=== PATIENT | female | born 1970 | race Two or more races ===

== ENCOUNTER 2020-11-09 18:11 | Emergency (ER) | payer OTHER, SELFPAY ==
--- NOTE | ~2020-11-09 | XR_ITS ---
EXAMINATION: PORTABLE CHEST 1 VIEW CLINICAL INFORMATION: cp . COMPARISON: 05/29/2019. TECHNIQUE: Portable frontal view of the chest was obtained. FINDINGS: The lungs are well expanded. No focal infiltrate, effusion, edema, or pneumothorax. Cardiac and mediastinal silhouettes are within normal limits for technique. No acute bony abnormality seen. XR/XR chest 1V IMPRESSION: No evidence of acute disease.
[2020-11-09 18:20] VITALS: BP 141/71; PULSE 72; RESP 16; TEMP 36.7; O2SAT 98; BMI 52.0
--- NOTE | 2020-11-09 19:16 | ECG_ITS ---
Test Reason : CHEST PAIN Blood Pressure : / mmHG Vent. Rate : 073 BPM Atrial Rate : 073 BPM P-R Int : 166 ms QRS Dur : 082 ms QT Int : 394 ms P-R-T Axes : 000 051 044 degrees QTc Int : 434 ms Normal sinus rhythm Nonspecific ST abnormality Abnormal ECG When compared with ECG of 10-JUN-2019 10:38, No significant change was found Referred By: Adneike Castaneda Electronically Signed By:Victor Manuel Jackson
--- NOTE | 2020-11-09 19:45 | ED_ITS ---
HPI - Anxiety General Chief Complaint: Anxiety Stated Complaint: CHEST PAIN Time Seen by Provider: 11/09/20 19:16 Source: patient and EMS Mode of arrival: EMS History of Present Illness HPI narrative: 50-year-old female with no significant past medical history presenting to the ED complaining of constant substernal chest pressure/stabbing pain since yesterday. Reports increased stress/anxiety due to mother's recent . Reports episode of lightheadedness while walking up the stairs today, resolved at present. Also reports acute on chronic LE edema. Denies fever, chills, cough, shortness of breath, numbness, tingling, calf pain, recent travel MD complaint: anxiety Related Data Allergies Allergy/AdvReac Type Severity Reaction Status Date / Time latex [LATEX] Allergy Unknown ECZEMA Verified 11/09/20 20:08 ibuprofen [From MOTRIN] AdvReac Unknown FAINTED Verified 11/09/20 20:08 SEASONAL ALLERGIES Allergy Unknown SNEEZING Uncoded 11/09/20 20:08 Review of Systems Review of Systems: Constitutional: No Fever, No Chills, No Fatigue, No Malaise Cardiovascular: + Chest Pain, No SOB, + Dyspnea on Exertion, No Orthopnea, + Edema, No Palpitations Respiratory: No Cough, No Sputum, No Wheezing, No Dyspnea Gastrointestinal: No Nausea, No Vomiting, No Diarrhea, No Constipation, No Abdominal pain Genitourinary: No Dysuria, No Urinary Frequency, No Hematuria Musculoskeletal: No joint pain, No Myalgias, No Joint Swelling Skin: No Skin Lesions, No rash Neuro: No Weakness, No Numbness, No Paresthesias, No Loss of Consciousness, + lightheadedness (resolved) Yes all other systems are reviewed and are negative [facility] Past Medical History Attestation statement: The following information was validated with the patient. Medical History (Updated 11/09/20 @ 21:53 by AZALEA Arrieta) No known health problems Social History Social History Alcohol intake: never Smoking Status: Never smoker Advance Directives: No Advance Directives Information Provided: Yes Patient : No Physical Exam Vital Signs: Vital Signs: Last Vital Signs Temp 97.9 F 11/09/20 20:06 Pulse 69 11/09/20 20:06 Resp 16 11/09/20 20:06 BP 138/73 11/09/20 20:06 Pulse Ox 98 11/09/20 20:06 Body Mass Index 52.0 Const: General: cooperative, healthy appearing and anxious Orientati on/consciousness: patient oriented x3 Limitations: no limitations HENMT: Head: Yes normal to inspection Ears: hearing grossly normal bilaterally General nose exam: Normal external nose present Face and sinus: Yes normal facial exam Eyes: General: appearance normal, both eyes and all related structures EOM: EOMs intact bilaterally Neck: Neck: Yes normal visual inspection and Yes no meningeal signs Chest: Chest palpation & inspection: normal inspection of the chest, no crepitus and tenderness (Substernal) Resp: Effort & Inspection: normal respiratory effort Auscultation: clear to auscultation bilaterally, no rales, no rhonchi and no wheezes Cardio: Rate: regular rate Heart sounds: S1 normal heart sound present and S2 normal heart sound present GI: Inspection: Yes normal to inspection Palpation (GI): Soft to palpation, nontender, no guarding and not rigid Skin: Rashes: no rashes Wounds: no wounds Neuro: General: patient oriented x3 and no meningeal signs Gait exam (Neuro): Normal gait present Extrem: Other: + bilateral lower extremity edema General: Yes normal to inspection and Yes no calf tenderness Course Course Course Narrative: -no leukocytosis, H&H at patient's baseline, labs otherwise unremarkable, troponin negative XR chest 1V IMPRESSION: No evidence of acute disease. >> 2150--on re-evaluation patient reports symptomatic improvement. Results d iscussed with patient including worrisome signs and symptoms and strict return precautions, she verbalized understanding and feels safe discharge home MDM - Anxiety MDM Narrative Medical decision making narrative: 50-year-old female with no significant past medical history presenting to the ED complaining of constant substernal chest pressure/stabbing pain since yesterday. Reports increased stress/anxiety due to mother's recent . On exam VSS, appears anxious, tremulous, lungs CTA, chest pain reproducible on exam, bilateral lower extremity edema. Concern for ACS vs anxiety vs CHF. Lower concern for pneumonia/PE Plan: EKG, labs, CXR, Ativan, reassess Medical Records Attestation: I reviewed the patient's medical records. Lab Data Attestation: I reviewed the patient's lab results. Result diagrams: 11/09/20 20:00 11/09/20 20:00 Labs: Lab Results 11/09/20 11/09/20 11/09/20 Range/Units 20:00 20:00 20:00 WBC 10.2 (4.8-10.8) X10*3/uL RBC 3.96 L (4.20-5.50) X10*6/uL Hgb 9.8 L (12.0-16.0) g/dl Hct 31.6 L (37-47) % MCV 79.8 L (80-98) fL MCH 24.7 L (27.0-33.0) pg MCHC 31.0 (31.0-35.0) g/dl RDW 17.0 H (11.0-16.0) % Plt Count 337 (160-400) X10*3/uL MPV 10.1 (9.4-12.3) fL Immature Gran % (Auto) 0.6 H (0.0-0.4) % Neut % (Auto) 64.5 (45-73) % Lymph % (Auto) 25.1 (20-40) % [place] % (Auto) 7.5 (2-11) % Eos % (Auto) 1.7 (0-4) % Baso % (Auto) 0.6 (0-2) % Lymph # (Auto) 2.6 (1.2-4.9) X10*3/uL [place] # (Auto) 0.8 (0.1-1.2) X10*3/uL Eos # (Auto) 0.2 (0.0-0.4) X10*3/uL Baso # (Auto) 0.1 (0.0-0.2) X10*3/uL Abs Immat Gran (auto) 0.06 H (0.00-0.03) X10*3/uL Absolute Neuts (auto) 6.6 (2.0-8.3) X10*3/uL Absolute Nucleated RBC 0.000 (0.0-0.012) X10*3/uL Nucleated RBC % (auto) 0.0 (0.0-0.2) /100WBC Hold Blue Top SEE NOTE Sodium 137 (135-145) mmol/L Potassium 4.1 (3.3-5.1) mmol/L Chloride 99 (96-108) mmol/L Carbon Dioxide 30 H (22-29) mmol/L Anion Gap 12 (12-20) BUN 8 L (9-16) mg/dL Creatinine 0.75 (0.5-1.4) mg/dL Estim Creat Clear Calc 110.1 Estimated GFR > 60 Random Glucose 92 (60-115) mg/dL Calcium 8.6 (8.4-10.2) mg/dL Magnesium 2.0 (1.6-2.6) mg/dL Total Bilirubin 0.4 (0.0-1.0) mg/dL Direct Bilirubin < 0.2 (0.0-0.5) mg/dL AST 11 (5-31) U/L ALT 13 (0-31) U/L Alkaline Phosphatase 100 (39-117) U/L Troponin I High Sens (<3.5-17.0) ng/L B-Natriuretic Peptide (<100) pg/mL Total Protein 6.8 (6.5-8.0) g/dL Albumin 3.6 (3.5-5.0) g/dL 11/09/20 Range/Units 20:00 WBC (4.8-10.8) X10*3/uL RBC (4.20-5.50) X10*6/uL Hgb (12.0-16.0) g/dl Hct (37-47) % MCV (80-98) fL MCH (27.0-33.0) pg MCHC (31.0-35.0) g/dl RDW (11.0-16.0) % Plt Count (160-400) X10*3/uL MPV (9.4-12.3) fL Immature Gran % (Auto) (0.0-0.4) % Neut % (Auto) (45-73) % Lymph % (Auto) (20-40) % [place] % (Auto) (2-11) % Eos % (Auto) (0-4) % Baso % (Auto) (0-2) % Lymph # (Auto) (1.2-4.9) X10*3/uL [place] # (Auto) (0.1-1.2) X10*3/uL Eos # (Auto) (0.0-0.4) X10*3/uL Baso # (Auto) (0.0-0.2) X10*3/uL Abs Immat Gran (auto) (0.00-0.03) X10*3/uL Absolute Neuts (auto) (2.0-8.3) X10*3/uL Absolute Nucleated RBC (0.0-0.012) X10*3/uL Nucleated RBC % (auto) (0.0-0.2) /100WBC Hold Blue Top Sodium (135-145) mmol/L Potassium (3.3-5.1) mmol/L Chloride (96-108) mmol/L Carbon Dioxide (22-29) mmol/L Anion Gap (12-20) BUN (9-16) mg/dL Creatinine (0.5-1.4) mg/dL Estim Creat Clear Calc Estimated GFR Random Glucose (60-115) mg/dL Calcium (8.4-10.2) mg/dL Magnesium (1.6-2.6) mg/dL Total Bilirubin (0.0-1.0) mg/dL Direct Bilirubin (0.0-0.5) mg/dL AST (5-31) U/L ALT (0-31) U/L Alkaline Phosphatase (39-117) U/L Troponin I High Sens < 3.5 (<3.5-17.0) ng/L B-Natriuretic Peptide 39 (<100) pg/mL Total Protein (6.5-8.0) g/dL Albumin (3.5-5.0) g/dL ECG Data Attestation: I personally reviewed and interpreted this ECG as follows: ECG interpretation date: 11/09/20 ECG interpretation time: 19:36 Interpretation: EKG normal sinus rhythm with a rate of 73. Nonischemic-no STEMI. Artifact present Discharge Plan Discharge Clinical Impression: Chest pain Patient Disposition: Home, Self-Care Instructions: Chest Pain (ED) Additional Instructions: Your blood work and chest x-ray were reassuring today in the emergency department It is important for you to follow-up with her primary care doctor as well as cardiology If her symptoms persist or worsen, at shortness of breath, fever, or cough plea se return to the ED Referrals: Victor Manuel Jackson MD [Physician] - 5 days Elizabeth Hoffman NP [Primary Care Provider] - 2 days
[2020-11-09 20:05] LABS: MANUAL DIFF FLAG NO
[2020-11-09 20:06] VITALS: BP 138/73; PULSE 69; RESP 16; TEMP 36.6; O2SAT 98
[2020-11-09] MEDS: LORazepam 1 MG TABLET PO (20:09)
[2020-11-09 20:12] LABS: Basophils Absolute Auto 0.1 X10*3/uL (0.0-0.2); Basophils Percent Auto 0.6 % (0-2); Eosinophils Absolute Auto 0.2 X10*3/uL (0.0-0.4); Eosinophils Percent Auto 1.7 % (0-4); Hematocrit 31.6 % (37-47); Hemoglobin 9.8 g/dl (12.0-16.0); Imm Gran Abs Auto 0.06 X10*3/uL (0.00-0.03); Imm Gran Pct Auto 0.6 % (0.0-0.4); Lymphocytes Absolute Auto 2.6 X10*3/uL (1.2-4.9); Lymphocytes Percent Auto 25.1 % (20-40); Mean Corpuscular Hemoglobin 24.7 pg (27.0-33.0); Mean Corpuscular Volume 79.8 fL (80-98); Mean Platelet Volume 10.1 fL (9.4-12.3); Monocytes Absolute Auto 0.8 X10*3/uL (0.1-1.2); Monocytes Percent Auto 7.5 % (2-11); Neutrophils Absolute Auto 6.6 X10*3/uL (2.0-8.3); Neutrophils Percent Auto 64.5 % (45-73); Platelet Count 337 X10*3/uL (160-400); Red Blood Count 3.96 X10*6/uL (4.20-5.50); White Blood Count 10.2 X10*3/uL (4.8-10.8)
--- NOTE | 2020-11-09 20:33 | PC.NURSE ---
patient is ambulatory to the bathroom with a steady gait.
[2020-11-09 20:37] LABS: Alanine Aminotransferase 13 U/L (0-31); Albumin Level 3.6 g/dL (3.5-5.0); Alkaline Phosphatase 100 U/L (39-117); Anion Gap 12 (12-20); Aspartate Amino Transferase 11 U/L (5-31); Bilirubin Direct < 0.2 mg/dL (0.0-0.5); Bilirubin Total 0.4 mg/dL (0.0-1.0); Blood Urea Nitrogen 8 mg/dL (9-16); Calcium 8.6 mg/dL (8.4-10.2); Carbon Dioxide 30 mmol/L (22-29); Chloride 99 mmol/L (96-108); Creatinine Clr Calc Pharmacy 110.1; Estimated Glomerular Filt Rate > 60; Glucose Random 92 mg/dL (60-115); Potassium 4.1 mmol/L (3.3-5.1); Sodium 137 mmol/L (135-145); Total Protein 6.8 g/dL (6.5-8.0)
[2020-11-09 20:44] LABS: B Type Natriuretic Peptide 39 pg/mL (<100); Troponin-I High Sensitivity < 3.5 ng/L (<3.5-17.0)
== END 2020-11-09 22:00 | disposition home or self-care (01) ==
PROVIDERS: Physician Assistant; Emergency Provider Internal Medicine; PCP Nurse Practitioner Primary Care
DX: R07.9 Chest pain, unspecified (principal); F41.9 Anxiety disorder, unspecified; R60.0 Localized edema
CPT/HCPCS: 36415; 71045; 80048; 80076; 83735; 83880; 84484; 85025; 93005; 99283; 99284

== ENCOUNTER 2020-12-20 20:52 | Emergency (ER) | payer OTHER, SELFPAY ==
--- NOTE | ~2020-12-20 | XR_ITS ---
EXAMINATION: XR CHEST CLINICAL INFORMATION: Cough, fatigue. COMPARISON: Most recent chest radiograph dated 11/09/2020. TECHNIQUE: 2 views of the chest were obtained. FINDINGS: The lungs are clear. The cardiomediastinal silhouette is normal in size. There is no pleural effusion or pneumothorax. No acute osseous abnormality. XR/XR chest 2V IMPRESSION: No acute cardiopulmonary findings.
--- NOTE | ~2020-12-20 | CT_ITS ---
EXAMINATION: CT ABDOMEN AND PELVIS WITH CONTRAST CLINICAL INFORMATION: Flank pain and hematuria. COMPARISON: c 03/07/2016 TECHNIQUE: Multidetector volumetric images were obtained from the superior aspect of the liver through the pubic symphysis following administration 85 mL of Omnipaque 350 intravenous contrast. Sagittal and coronal reformatted images were obtained on the technologist's workstation. Oral contrast: No This CT examination was performed using dose optimization techniques as appropriate, variously including the following: *Automated exposure control *Adjustment of mA and/or kV according to patient size (this includes techniques or standardized protocols for targeted exams where dose is matched to indication/reason for exam; i.e. extremities or head) *Use of iterative reconstruction technique DLP: 1336 mGy-cm FINDINGS: LUNG BASES: The visualized lung bases are unremarkable. LIVER, GALLBLADDER, AND BILIARY TREE: The liver is normal in size, shape, and attenuation. No focal hepatic lesion or biliary ductal dilatation is present. The gallbladder is unremarkable with no evidence of radiopaque gallstones, gallbladder wall thickening, or obvious pericholecystic inflammatory changes. PANCREAS: Unremarkable. SPLEEN: Unremarkable. ADRENAL GLANDS: Unremarkable. KIDNEYS AND URETERS: The kidneys are normal in size, shape, and attenuation. No hydronephrosis, hydroureter, or calculi seen. No perinephric stranding. BLADDER: Unremarkable. GASTROINTESTINAL TRACT: Stomach unremarkable. Scattered left colonic diverticula. No evidence of diverticulitis. Normal appendix. Stable haziness of the small bowel mesentery with shotty mesenteric lymph nodes. ABDOMINAL WALL: No significant hernia is appreciated. LYMPH NODES: Normal. VASCULAR: Unremarkable. PELVIC VISCERA: Uterus and ovaries unremarkable. OSSEOUS STRUCTURES: No acute or suspicious osseous abnormalities. CT/CT abdomen pelvis w con IMPRESSION: No etiology for the patient's flank pain or hematuria is identified. Stable appearing mild mesenteric panniculitis. .
[2020-12-20 20:56] VITALS: BP 129/77; PULSE 94; RESP 18; TEMP 37; O2SAT 97; BMI 52.0
--- NOTE | 2020-12-20 21:35 | ECG_ITS ---
Test Reason : DYSPNEA Blood Pressure : / mmHG Vent. Rate : 092 BPM Atrial Rate : 092 BPM P-R Int : 144 ms QRS Dur : 076 ms QT Int : 344 ms P-R-T Axes : 092 055 056 degrees QTc Int : 425 ms Normal sinus rhythm Normal ECG When compared with ECG of 09-NOV-2020 19:36, No significant change was found Referred By: Afia Almeida Electronically Signed By:Victor Manuel Jackson
--- NOTE | 2020-12-20 21:36 | ED_ITS ---
HPI - SOB/Dyspnea General Chief Complaint: Dyspnea Stated Complaint: MALAISE, COUGH Time Seen by Provider: 12/20/20 21:35 Source: patient Mode of arrival: EMS History of Present Illness HPI Narrative: This is a 50-year-old female with history of asthma who presents with 2 days of subjective fevers and shortness of breath without increased use of her inhaler as well as a couple of episodes of nonbloody diarrhea without abdominal pain. Otherwise, patient denies chest pain/palpitations, abdominal pain, urinary pain/burning/frequency. Related Data Allergies Allergy/AdvReac Type Severity Reaction Status Date / Time latex [LATEX] Allergy Unknown ECZEMA Verified 11/09/20 20:08 ibuprofen [From MOTRIN] AdvReac Unknown FAINTED Verified 11/09/20 20:08 SEASONAL ALLERGIES Allergy Unknown SNEEZING Uncoded 11/09/20 20:08 Review of Systems Review of Systems: Pertinent positives and negatives as stated in HPI 10 point review of systems is otherwise negative. PMFSH Past Medical History Source: nursing notes reviewed Medical History No known health problems Social History Social History Alcohol intake: never Patient Tobacco Use Status: Never used Tobacco Use of substances other than those prescribed or required for medical reasons: No Advance Directives: No Advance Directives Information Provided: No Patient : No Physical Exam Vital Signs: Vital Signs: Last Vital Signs Temp 98.6 F 12/20/20 20:56 Pulse 89 12/20/20 23:29 Resp 15 12/20/20 22:04 BP 129/77 12/20/20 22:04 Pulse Ox 98 12/20/20 22:04 Body Mass Index 52.0 VITAL SIGNS: Reviewed. GENERAL: Well developed, well nourished, in no acute distress. HEAD: Normocephalic/atraumatic EYES: PERRLA, EOMI EARS: Ext canals without abnormality NOSE: Nares patent bilateral OROPHARYNX: no oral lesions noted, posterior pharynx clear LUNGS: Bilateral expiratory wheeze, no tachypnea, no increased work of breathing, scattered rhonchi. SpO2<98> CARDIOVASCULAR: Regular rate and rhythm without noted murmurs, no JVD or lower extremity edema. ABDOMEN: Obese, Soft, non-tender, non-distended with bowel sounds. SKIN: Inspection of the skin reveals no rashes NEUROLOGIC: Alert and oriented x 4. Baseline tremulousness, Strength and sensation to light touch were grossly intact x 4. Course Course Course Narrative: This 50-year-old female with history and clinical presentation suggestive of possible mild asthma exacerbation, will rule out pneumonia al though less likely. Review of all investigations negative for any acute findings other than hematur ia and review of CT scan is negative for evidence of pyelonephritis, renal colic that may better explain patient's hematuria. On re-evaluation patient is feeling better after receiving albuterol treatment and will be discharged. MDM - SOB/Dyspnea Lab Data Result diagrams: 12/20/20 22:34 12/20/20 22:34 Labs: Lab Results 12/20/20 12/20/20 12/20/20 Range/Units 22:34 22:34 22:34 WBC 10.4 (4.8-10.8) X10*3/uL RBC 3.60 L (4.20-5.50) X10*6/uL Hgb 8.9 L (12.0-16.0) g/dl Hct 28.1 L (37-47) % MCV 78.1 L (80-98) fL MCH 24.7 L (27.0-33.0) pg MCHC 31.7 (31.0-35.0) g/dl RDW 17.4 H (11.0-16.0) % Plt Count 304 (160-400) X10*3/uL MPV 9.7 (9.4-12.3) fL Immature Gran % (Auto) 0.5 H (0.0-0.4) % Neut % (Auto) 70.1 (45-73) % Lymph % (Auto) 18.3 L (20-40) % [place] % (Auto) 6.9 (2-11) % Eos % (Auto) 3.9 (0-4) % Baso % (Auto) 0.3 (0-2) % Lymph # (Auto) 1.9 (1.2-4.9) X10*3/uL [place] # (Auto) 0.7 (0.1-1.2) X10*3/uL Eos # (Auto) 0.4 (0.0-0.4) X10*3/uL Baso # (Auto) 0.0 (0.0-0.2) X10*3/uL Abs Immat Gran (auto) 0.05 H (0.00-0.03) X10*3/uL Absolute Neuts (auto) 7.3 (2.0-8.3) X10*3/uL Absolute Nucleated RBC 0.000 (0.0-0.012) X10*3/uL Nucleated RBC % (auto) 0.0 (0.0-0.2) /100WBC Sodium 137 (135-145) mmol/L Potassium 4.6 (3.3-5.1) mmol/L Chloride 102 (96-108) mmol/L Carbon Dioxide 29 (22-29) mmol/L Anion Gap 11 L (12-20) BUN 16 D (9-16) mg/dL Creatinine 0.76 (0.5-1.4) mg/dL Estim Creat Clear Calc 108.5 Estimated GFR > 60 Random Glucose 143 H D (60-115) mg/dL Calcium 8.8 (8.4-10.2) mg/dL Total Bilirubin 0.2 (0.0-1.0) mg/dL AST 10 (5-31) U/L ALT 8 (0-31) U/L Alkaline Phosphatase 105 (39-117) U/L Total Protein 6.6 (6.5-8.0) g/dL Albumin 3.4 L (3.5-5.0) g/dL Urine Color Urine Appearance Urine pH (5.0-8.0) Ur Specific [place] (1.005-1.025) Urine Protein (NEG-TRACE) MG/DL Urine Glucose (UA) (NEG) MG/DL Urine Ketones (NEG) MG/DL Urine Blood (NEG) Urine Nitrite (NEG) Ur Leukocyte Esterase (NEG) Urine RBC (0) /HPF Urine WBC (0-4) /HPF Ur Squamous Epith Cells /LPF Urine Bacteria /LPF COVID-19 (TONY) Negative (Negative) COVID-19 Clin Com See Note 12/20/20 Range/Units 22:45 WBC (4.8-10.8) X10*3/uL RBC (4.20-5.50) X10*6/uL Hgb (12.0-16.0) g/dl Hct (37-47) % MCV (80-98) fL MCH (27.0-33.0) pg MCHC (31.0-35.0) g/dl RDW (11.0-16.0) % Plt Count (160-400) X10*3/uL MPV (9.4-12.3) fL Immature Gran % (Auto) (0.0-0.4) % Neut % (Auto) (45-73) % Lymph % (Auto) (20-40) % [place] % (Auto) (2-11) % Eos % (Auto) (0-4) % Baso % (Auto) (0-2) % Lymph # (Auto) (1.2-4.9) X10*3/uL [place] # (Auto) (0.1-1.2) X10*3/uL Eos # (Auto) (0.0-0.4) X10*3/uL Baso # (Auto) (0.0-0.2) X10*3/uL Abs Immat Gran (auto) (0.00-0.03) X10*3/uL Absolute Neuts (auto) (2.0-8.3) X10*3/uL Absolute Nucleated RBC (0.0-0.012) X10*3/uL Nucleated RBC % (auto) (0.0-0.2) /100WBC Sodium (135-145) mmol/L Potassium (3.3-5.1) mmol/L Chloride (96-108) mmol/L Carbon Dioxide (22-29) mmol/L Anion Gap (12-20) BUN (9-16) mg/dL Creatinine (0.5-1.4) mg/dL Estim Creat Clear Calc Estimated GFR Random Glucose (60-115) mg/dL Calcium (8.4-10.2) mg/dL Total Bilirubin (0.0-1.0) mg/dL AST (5-31) U/L ALT (0-31) U/L Alkaline Phosphatase (39-117) U/L Total Protein (6.5-8.0) g/dL Albumin (3.5-5.0) g/dL Urine Color PINK Urine Appearance HAZY Urine pH 6.0 (5.0-8.0) Ur Specific [place] 1.020 (1.005-1.025) Urine Protein 2+ H (NEG-TRACE) MG/DL Urine Glucose (UA) NEG (NEG) MG/DL Urine Ketones NEG (NEG) MG/DL Urine Blood 3+ H (NEG) Urine Nitrite NEG (NEG) Ur Leukocyte Esterase TRACE H (NEG) Urine RBC TNTC H (0) /HPF Urine WBC 1-4 (0-4) /HPF Ur Squamous Epith Cells 1+ /LPF Urine Bacteria NONE /LPF COVID-19 (TONY) (Negative) COVID-19 Clin Com ECG Data Attestation: I personally reviewed and interpreted this ECG as follows: Prior ECG tracings: available for review (11/09/2020 no acute changes on comparison) Interpretation: Normal sinus rhythm, HR -92, no acute evidence of ischemia, UT/QRS/QTC are within normal limits. Discharge Plan Discharge Clinical Impression: Asthma with exacerbation Patient Disposition: Home, Self-Care Instructions: Asthma (ED) Additional Instructions: Resume all home medications as prescribed. Recommend increasing the use of your albuterol inhaler for the next 1-2 days for additional symptom relief. Return to the ER for any acute worsening of symptoms. Referrals: Elizabeth Hoffman NP [Primary Care Provider] - 2 days
[2020-12-20 22:04] VITALS: BP 129/77; PULSE 94; RESP 15; O2SAT 98
[2020-12-20 22:41] LABS: MANUAL DIFF FLAG NO
[2020-12-20 22:43] LABS: Basophils Percent Auto 0.3 % (0-2); Eosinophils Absolute Auto 0.4 X10*3/uL (0.0-0.4); Eosinophils Percent Auto 3.9 % (0-4); Hematocrit 28.1 % (37-47); Hemoglobin 8.9 g/dl (12.0-16.0); Imm Gran Abs Auto 0.05 X10*3/uL (0.00-0.03); Imm Gran Pct Auto 0.5 % (0.0-0.4); Lymphocytes Absolute Auto 1.9 X10*3/uL (1.2-4.9); Lymphocytes Percent Auto 18.3 % (20-40); Mean Corpuscular HGB Conc 31.7 g/dl (31.0-35.0); Mean Corpuscular Hemoglobin 24.7 pg (27.0-33.0); Mean Corpuscular Volume 78.1 fL (80-98); Mean Platelet Volume 9.7 fL (9.4-12.3); Monocytes Absolute Auto 0.7 X10*3/uL (0.1-1.2); Monocytes Percent Auto 6.9 % (2-11); Neutrophils Absolute Auto 7.3 X10*3/uL (2.0-8.3); Neutrophils Percent Auto 70.1 % (45-73); Platelet Count 304 X10*3/uL (160-400); Red Cell Distribution Width 17.4 % (11.0-16.0); White Blood Count 10.4 X10*3/uL (4.8-10.8)
[2020-12-20 22:56] LABS: Appearance Urine HAZY; Color Urine PINK; Glucose Urine UA NEG (NEG); Leukocyte Esterase Urine TRACE (NEG); Nitrite Urine NEG (NEG); UACC Culture Trigger YES; Urine Blood 3+ (NEG); Urine Ketones NEG (NEG); Urine Protein 2+ MG/DL (NEG-TRACE)
[2020-12-20 23:04] LABS: RBC Urine TNTC /HPF (0); Squamous Epithelial Cell Urine 1+ /LPF
[2020-12-20 23:08] LABS: COVID-19 Test Negative (Negative); IDNOW Serial# 9DD0AD1C
[2020-12-20 23:13] LABS: Alanine Aminotransferase 8 U/L (0-31); Albumin Level 3.4 g/dL (3.5-5.0); Alkaline Phosphatase 105 U/L (39-117); Anion Gap 11 (12-20); Aspartate Amino Transferase 10 U/L (5-31); Bilirubin Total 0.2 mg/dL (0.0-1.0); Blood Urea Nitrogen 16 mg/dL (9-16); Calcium 8.8 mg/dL (8.4-10.2); Carbon Dioxide 29 mmol/L (22-29); Chloride 102 mmol/L (96-108); Creatinine Clr Calc Pharmacy 108.5; Estimated Glomerular Filt Rate > 60; Glucose Random 143 mg/dL (60-115); Potassium 4.6 mmol/L (3.3-5.1); Sodium 137 mmol/L (135-145); Total Protein 6.6 g/dL (6.5-8.0)
--- NOTE | 2020-12-20 23:17 | PC.NURSE ---
Report taken. RT contacted for overdue ralph.
[2020-12-20 23:29] VITALS: PULSE 89; O2SAT 96
[2020-12-20] MEDS: Albuterol Sulfate (0.083%) 2.5 MG/3 ML VIAL.NEB 7.5 MG INHALE (23:29)
[2020-12-21] MEDS: iohexoL 350 MG/ML 100 ML INFUS..BTL 85 ML IV (00:54)
== END 2020-12-21 02:22 | disposition home or self-care (01) ==
PROVIDERS: Emergency Provider Student in an Organized Health Care Education/Training Program; PCP Nurse Practitioner Primary Care
DX: J45.901 Unspecified asthma with (acute) exacerbation (principal); R31.9 Hematuria, unspecified; Z20.822 Contact with and (suspected) exposure to COVID-19
CPT/HCPCS: 36415; 71046; 74177; 80053; 81001; 81003; 85025; 87086; 87635; 93005; 94640; 94644; 99284; Q9967

== ENCOUNTER 2022-10-26 09:36 | Outpatient (REF) | payer OTHER, SELFPAY ==
--- NOTE | ~2022-10-26 | XR_ITS ---
EXAMINATION: XR KNEE, RIGHT CLINICAL INFORMATION: Pain. Unable to bear weight after falling COMPARISON: None available. TECHNIQUE: Four views of the right knee. FINDINGS: There is moderate to advanced medial joint space narrowing with marginal osteophyte formation. There is dystrophic calcification along the proximal medial collateral ligament. There is spurring of the lateral tibial plateau, lateral femoral condyle and tibial spines. No evidence though for a fracture, or destructive lesion or dislocation. There is a small joint effusion. XR/XR knee RT 4V IMPRESSION: No acute fractures are observed. MRI could be done to search for a subtle bone bruise or radiographically occult fracture if clinically warranted.
== END 2022-10-26 09:37 | disposition home or self-care (01) ==
LOC: HO.XRAY 09:36
PROVIDERS: PCP Nurse Practitioner Primary Care; Visit Provider Emergency Medicine
DX: M25.561 Pain in right knee (principal); Z91.81 History of falling
CPT/HCPCS: 73564

== ENCOUNTER 2023-03-15 12:55 | Emergency (ER) | payer MEDICARE, MEDICAID, SELFPAY ==
--- NOTE | ~2023-03-15 | CT_ITS ---
EXAMINATION: CT CERVICAL SPINE WITHOUT CONTRAST CLINICAL INFORMATION: Fall COMPARISON: None available. TECHNIQUE: Axial images through the cervical spine without IV contrast. Sagittal and coronal reconstructions on the technologist workstation were performed. This CT examination was performed using dose optimization techniques as appropriate, variously including the following: *Automated exposure control *Adjustment of mA and/or kV according to patient size (this includes techniques or standardized protocols for targeted exams where dose is matched to indication/reason for exam; i.e. extremities or head) *Use of iterative reconstruction technique DLP: 698 mGy-cm FINDINGS: Bone alignment is normal. No fracture or dislocation. There is degenerative spondylosis at C2-C3 and C5-C6 to T1-T2. There is degenerative disc disease from C5-C6 to T1-T2. Prevertebral soft tissues are normal. Lung apices are clear. CT/CT cervical spine wo IV con IMPRESSION: Degenerative changes. No fracture or dislocation Fleischner guidelines were followed.
--- NOTE | ~2023-03-15 | CT_ITS ---
EXAMINATION: CT HEAD WITHOUT CONTRAST CLINICAL INFORMATION: Fall COMPARISON: Previous head CT August 2017 TECHNIQUE: Contiguous axial imaging was performed from the skull base to vertex without intravenous administration of contrast. This CT examination was performed using dose optimization techniques as appropriate, variously including the following: *Automated exposure control *Adjustment of mA and/or kV according to patient size (this includes techniques or standardized protocols for targeted exams where dose is matched to indication/reason for exam; i.e. extremities or head) *Use of iterative reconstruction technique DLP: 855 mGy-cm FINDINGS: There is no evidence of an extra-axial collection. There is no evidence of intra-axial or extra-axial hemorrhage. Ventricles and extra-axial CSF spaces are appropriate. Whitman-white matter differentiation is normal. No mass, mass effect or infarct. No skull fracture. Visualized paranasal sinuses, mastoid air cells and middle ears are clear. CT/CT head/brain wo IV con IMPRESSION: Unremarkable exam.
[2023-03-15 13:04] VITALS: BP 121/64; BP 166/96; PULSE 76; PULSE 80; RESP 16; TEMP 36.5; O2SAT 95; O2SAT 96; BMI 51.8
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
--- NOTE | 2023-03-15 14:14 | MHC.EDTECH ---
PT rang her call delgado. I went in and check on her. She stated she had to use the Bedpan, Tech got the bedpan and helped her on it. She rang a 2nd time to inform me she was finished and i went in with warm wipes and cleaned her up. All set
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
== END 2023-03-15 18:09 | disposition home or self-care (01) ==
PROVIDERS: Emergency Provider Student in an Organized Health Care Education/Training Program; PCP Nurse Practitioner Primary Care
DX: S09.90XA Unspecified injury of head, initial encounter (principal); R51.9 Headache, unspecified; M54.2 Cervicalgia; W01.0XXA Fall on same level from slipping, tripping and stumbling without subsequent striking against object, initial encounter; Y93.9 Activity, unspecified; Y92.9 Unspecified place or not applicable; Y99.9 Unspecified external cause status
CPT/HCPCS: 70450; 72125; 99284

== ENCOUNTER 2023-08-14 09:39 | Outpatient (REF) | payer MEDICARE, SELFPAY ==
[2023-08-14 12:58] LABS: Cholesterol 187 mg/dL (<200); HDL Cholesterol 45 mg/dL (>40); LDL Cholesterol Calculated 105 mg/dL (<100); Triglycerides 189 mg/dL (<150)
[2023-08-14 13:05] LABS: TSH reflex Free T4 1.52 uIU/mL (0.32-4.0)
== END 2023-08-14 09:40 | disposition home or self-care (01) ==
LOC: HO.HHCL 09:39
PROVIDERS: Visit Provider Advanced Practice Midwife
DX: R73.9 Hyperglycemia, unspecified (principal)
CPT/HCPCS: 36415; 80061; 84443

== ENCOUNTER 2023-11-30 12:45 | Outpatient (REF) | payer MEDICARE, SELFPAY ==
[2023-11-30 13:50] LABS: MANUAL DIFF FLAG NO
[2023-11-30 14:00] LABS: Basophils Absolute Auto 0.1 X10*3/uL (0.0-0.2); Basophils Percent Auto 0.6 % (0-2); Eosinophils Absolute Auto 0.1 X10*3/uL (0.0-0.4); Eosinophils Percent Auto 1.4 % (0-4); Hematocrit 38.6 % (37.0-47.0); Hemoglobin 12.8 g/dl (12.0-16.0); Imm Gran Abs Auto 0.08 X10*3/uL (0.00-0.03); Imm Gran Pct Auto 0.8 % (0.0-0.4); Lymphocytes Absolute Auto 1.5 X10*3/uL (1.2-4.9); Lymphocytes Percent Auto 15.6 % (20-40); Mean Corpuscular HGB Conc 33.2 g/dl (31.0-35.0); Mean Corpuscular Hemoglobin 29.2 pg (27.0-33.0); Mean Corpuscular Volume 87.9 fL (80.0-98.0); Mean Platelet Volume 10.6 fL (9.4-12.3); Monocytes Absolute Auto 0.3 X10*3/uL (0.1-1.2); Monocytes Percent Auto 3.4 % (2-11); Neutrophils Absolute Auto 7.6 x10*3/uL (2.0-8.3); Neutrophils Percent Auto 78.2 % (45-73); Platelet Count 271 X10*3/uL (160-400); Red Blood Count 4.39 X10*6/uL (4.20-5.50); Red Cell Distribution Width 14.1 % (11.0-16.0); White Blood Count 9.7 X10*3/uL (4.8-10.8)
[2023-11-30 14:36] LABS: Alanine Aminotransferase 14 U/L (0-31); Albumin Level 3.7 g/dL (3.5-5.0); Alkaline Phosphatase 91 U/L (39-117); Anion Gap 13 (12-20); Aspartate Amino Transferase 15 U/L (5-31); Bilirubin Total 0.2 mg/dL (0.0-1.0); Blood Urea Nitrogen 11 mg/dL (9-16); Calcium 9.6 mg/dL (8.4-10.2); Carbon Dioxide 29 mmol/L (22-29); Chloride 104 mmol/L (96-108); Estimated Glomerular Filt Rate > 60; Glucose Random 161 mg/dL (60-115); Potassium 4.1 mmol/L (3.3-5.1); Sodium 142 mmol/L (135-145); Total Protein 7.3 g/dL (6.5-8.0)
== END 2023-11-30 12:46 | disposition home or self-care (01) ==
LOC: HO.LAB 12:45
PROVIDERS: PCP Nurse Practitioner Primary Care; Referring Provider Nurse Practitioner Primary Care; Visit Provider Nurse Practitioner
DX: Z01.818 Encounter for other preprocedural examination (principal); R62.50 Unspecified lack of expected normal physiological development in childhood; E66.01 Morbid (severe) obesity due to excess calories; J45.909 Unspecified asthma, uncomplicated; Z68.43 Body mass index [BMI] 50.0-59.9, adult
CPT/HCPCS: 36415; 80053; 85025

== ENCOUNTER 2024-05-20 10:36 | Day surgery (SDC) | payer MEDICARE, SELFPAY ==
[2024-05-16 12:19] VITALS: BMI 52.5
--- NOTE | 2024-05-17 09:56 | HO.ANESPROP2 ---
Documented by User: Nury Garcia NP 05/17/24 09:57 HPI - Anesthesia Eval Consult details Narrative: 53yo F for Colonoscopy BMI 52 PMFSH Active Problems Active Problems: All Active Problems Pre-op examination (Acute) GERD (gastroesophageal reflux disease) (Acute) Seborrheic dermatitis (Acute) Pre-diabetes (Acute) Unsteady gait (Acute) Depression with anxiety (Acute) Developmental delay, mild (Acute) Smoker (Acute) Allergic rhinitis (Acute) Asthma (Acute) Morbid obesity with BMI of 50.0-59.9, adult (Acute) Past Medical History Medical History GERD (gastroesophageal reflux disease) Morbid obesity Depression Family History Family History Family/Other Skin cancer Maternal Aunt Vaginal cancer Social History Social History Alcohol intake: never Patient Tobacco Use Status: Never used Tobacco Advance Directives: No Advance Directives Information Provided: Yes Meds Allergies Allergy/AdvReac Type Severity Reaction Status Date / Time latex [LATEX] Allergy Unknown ECZEMA Verified 11/30/23 12:53 ibuprofen [From MOTRIN] AdvReac Unknown FAINTED Verified 11/30/23 12:53 SEASONAL ALLERGIES Allergy Unknown SNEEZING Uncoded 11/09/20 20:08 Home Medications ?Medication ?Instructions ?Recorded ?Confirmed ?Last Taken ?Type fluoxetine 40 mg capsule 40 mg PO DAILY 11/30/23 Unknown History folic acid 1 mg tablet 1 mg PO QAM 11/30/23 Unknown History mometasone-formoterol HFA 100 2 puff inhalation 11/30/23 Unknown History mcg-5 mcg/actuation aerosol inhaler (Dulera) multivitamin (One Daily 1 tab PO QAM 11/30/23 Unknown History Multivitamin tablet) risperidone 2 mg tablet 2 mg PO BEDTIME 11/30/23 Unknown History trazodone 100 mg tablet 100 mg PO BEDTIME 11/30/23 Unknown History Exam Height,Weight and Vital Signs: Height 5 ft 1 in Weight 126.099 kg Assessment and Plan Assessment Anesthesia Assessment: Chart Reviewed Documented by User: Ofelia Lawler MD 05/20/24 11:53 PMFSH Past Medical History Medical History GERD (gastroesophageal reflux disease) Morbid obesity Depression Family History Family History Family/Other Skin cancer Maternal Aunt Vaginal cancer Family history of problems with anesthesia: No Surgical History History of Problems with Anesthesia: No Social History Social History Alcohol intake: never Patient Tobacco Use Status: Never used Tobacco Advance Directives: No Advance Directives Information Provided: Yes Meds Allergies Allergy/AdvReac Type Severity Reaction Status Date / Time latex [LATEX] Allergy Unknown ECZEMA Verified 11/30/23 12:53 ibuprofen [From MOTRIN] AdvReac Unknown FAINTED Verified 11/30/23 12:53 SEASONAL ALLERGIES Allergy Unknown SNEEZING Uncoded 11/09/20 20:08 Home Medications ?Medication ?Instructions ?Recorded ?Confirmed ?Last Taken ?Type fluoxetine 40 mg capsule 40 mg PO DAILY 11/30/23 Unknown History folic acid 1 mg tablet 1 mg PO QAM 11/30/23 Unknown History mometasone-formoterol HFA 100 2 puff inhalation 11/30/23 Unknown History mcg-5 mcg/actuation aerosol inhaler (Dulera) multivitamin (One Daily 1 tab PO QAM 11/30/23 Unknown History Multivitamin tablet) risperidone 2 mg tablet 2 mg PO BEDTIME 11/30/23 Unknown History trazodone 100 mg tablet 100 mg PO BEDTIME 11/30/23 Unknown History Exam Airway Mallampati Class: II TM Dist: >3cm Heart: rrr Lungs: cta Assessment and Plan Assessment Anesthesia Assessment: Anesthesia Plan Discussed Final Anesthetic Review Family History of Problems with Anesthesia: No History of Problems with Anesthesia: No NPO: Yes ASA Class: III Final Preanesthetic Review: No Changes in Pt Med Stat, Meds/Allgs Chart Reviewed, Consent Obtained/Reviewed and Anes Risks/Benef Reviewed Patient Risk: Intermediate Procedure Risk: Low Anesthetic Plan Anesthetic Plan: MAC: Disposition: Standard PACU
--- NOTE | 2024-05-20 11:35 | MHC.SHP ---
Pre-Procedural Eval Section A - 24 Hr Update-Section A only Date of Service: 05/20/24 Section B - Complete if H&P > 30 days Chief Complaint: screening Relevant Family History (Specify if Yes): No Relevant Social History: Tobacco Use Present Medications: see Short Stay Collaborative assessment Medical History: Significant History (GERD, asthma, morbid obesity, mild developmental delay) History of Previous Operations: No relevant previous surgery Allergies: Allergies Allergy/AdvReac Type Severity Reaction Status Date / Time latex [LATEX] Allergy Unknown ECZEMA Verified 11/30/23 12:53 ibuprofen [From MOTRIN] AdvReac Unknown FAINTED Verified 11/30/23 12:53 SEASONAL ALLERGIES Allergy Unknown SNEEZING Uncoded 11/09/20 20:08 Review of Systems Sugical H&P ROS: Negative: Constitution, Cardiovascular, Respiratory and Gastrointestinal Exam Surgical H&P Exam: Normal: Heart, Normal: Lungs, Normal: Extremities and Normal: Abdomen Plan Diagnosis/Plan: Unchanged I have reviewed the history and physical and performed a pertinent physical examination on my patient. No changes have occurred unless specified. Time Spent With Patient Time: Total time managing care of this patient today ____ minutes.
[2024-05-20 11:59] VITALS: BP 138/81; PULSE 71; RESP 18; TEMP 36.2; O2SAT 96
--- NOTE | 2024-05-20 12:37 | P.OPN-COLO_ITS ---
Colonoscopy Operative Note Operative Note Date of Service: 05/20/24 Narrative: COLONOSCOPY TILL CECUM WITH BIOPSIES AND SNARE POLYPECTOMY Pre-op diagnosis: Colon cancer screening (first colon). Post-op diagnosis:? Colon polyps, Diverticulosis, hemorrhoids Endoscopist:? Rajan Castro MD Anesthesia:?MAC Consent: Indications for the procedure and potential complications of bleeding, perforation, reaction to medications and missed diagnosis were discussed with the patient and informed consent was obtained. Instrument: Olympus PCF H 190 L variable stiffness pediatric colonoscope Monitoring: Vital signs and clinical assessment, intermittent blood pressure monitoring, continuous EKG monitoring, Pulse oximetry and Carbon Dioxide monitoring were done throughout the procedure. Please see anesthesia flowsheet. Colon withdrawl time was 19 minutes. Procedure: The patient was placed in the left lateral decubitis position and pre-procedure medications were administered. After a digital rectal examination of the ano-rectum, the video colonoscope was inserted into the rectum and advanced through the colon to the cecum. The colonoscope was slowly withdrawn in a retrograde panoramic fashion and the colon mucosa was carefully examined including a retroflexed view of the rectum. Findings and interventions are described below. Procedure Difficulty: without difficulty Findings: Terminal Ileum: Not evaluated Cecum: Normal Ascending Colon: Three 5 - 7 mm sessile polyps - removed with a cold biopsy and a cold snare Transverse Colon: Normal Descending Colon: Normal Sigmoid Colon: A 12-15 mm sessile polyp at 45 cms - removed with hot snare. Moderate diverticulosis Rectum: Normal Ano-rectum: Small internal hemorrhoids Colon preparation: Good after copious irrigation. Mcroberts Bowel Preparation Scale Right colon; 2 Transverse colon: 2 Left colon; 2 (0 = Unprepared colon segment with mucosa not seen due to solid stool that cannot be cleared. 1 = Portion of mucosa of the colon segment seen, but other areas of the colon segment not well seen due to staining, residual stool and/or opaque liquid. 2 = Minor amount of residual staining, small fragments of stool and/or opaque liquid, but mucosa of colon segment seen well. 3 = Entire mucosa of colon segment seen well with no residual staining, small fragments of stool or opaque liquid) Impression and Post Procedure Diagnosis: Colonoscopy Findings: Four small to medium sized polyps were removed Moderate diverticulosis seen in the sigmoid colon small hemorrhoids on retroflexed exam. Plan: Pt has a FU appointment on 06/06/24 with Nereyda Caro NP, Repeat Colonoscopy in 3-5 years if polyps are adenomatous and 10 year if polyps are hyperplastic. Above findings were reviewed with the patient and relevant handouts were given and the discharge area. BIOPSIES SHOWED: A. Colon, ascending, polypectomies: Tubular adenomata; negative for high-grade dysplasia or carcinoma. B. Colon, sigmoid, polypectomy: Fragments of tubular adenoma; negative for high- grade dysplasia or carcinoma Letter sent advising repeat colon in 3 years Pt was placed on the colonoscopy recall list.
[2024-05-20 12:41] VITALS: BP 97/63; PULSE 78; RESP 17; TEMP 36.7; O2SAT 97
[2024-05-20 12:56] VITALS: BP 109/67; PULSE 78; RESP 20; TEMP 36.3; O2SAT 98
== END 2024-05-20 13:08 | disposition home or self-care (01) ==
PROVIDERS: PCP Nurse Practitioner Primary Care; Visit Provider Internal Medicine Gastroenterology
PROC: 0DJD8ZZ Inspection of Lower Intestinal Tract, Via Natural or Artificial Opening Endoscopic (ICD-10-PCS; CPT 45378; principal; 2024-05-20 12:30)
DX: Z12.11 Encounter for screening for malignant neoplasm of colon (principal); D12.2 Benign neoplasm of ascending colon; D12.5 Benign neoplasm of sigmoid colon; K57.30 Diverticulosis of large intestine without perforation or abscess without bleeding; K64.8 Other hemorrhoids; K21.9 Gastro-esophageal reflux disease without esophagitis; J45.909 Unspecified asthma, uncomplicated; E66.01 Morbid (severe) obesity due to excess calories; Z68.43 Body mass index [BMI] 50.0-59.9, adult; R62.50 Unspecified lack of expected normal physiological development in childhood; Z91.040 Latex allergy status; Z79.899 Other long term (current) drug therapy; Z88.6 Allergy status to analgesic agent
CPT/HCPCS: 45385; 45380; 88305; J2003; J2250; J2704

== ENCOUNTER → 2024-05-20 10:36 | Outpatient (BNV) | payer MEDICARE, SELFPAY | PROVIDERS: PCP Nurse Practitioner Primary Care; Visit Provider Internal Medicine Gastroenterology | DX: Z12.11 Encounter for screening for malignant neoplasm of colon (principal); D12.2 Benign neoplasm of ascending colon; D12.5 Benign neoplasm of sigmoid colon; K57.30 Diverticulosis of large intestine without perforation or abscess without bleeding; K64.8 Other hemorrhoids | CPT/HCPCS: 45380; 45385 ==

== ENCOUNTER 2025-06-19 09:06 | Outpatient (REF) | payer MEDICARE, SELFPAY ==
--- OUTSIDE RECORDS SUMMARY | 2025-06-19 10:16 | XMS_ITS | Encounter Summary ---
Author Organization [employer] Address [address] [place] [address] Care Team Providers Care Rough Carpenter Name Role Phone Elizabeth Hoffman Primary Care Provider [phone] Encounter Details Date Type Department Care Team (Late st Contact Info) Description 06/17/2025 Telephone [facility] [address] [place] [address] Noy Song [place] Social History Tobacco Use Types Packs/Day Years Used Date Smoking Tobacco: Former Cigarettes Passive Smoke Exposure: Past Smokeless Tobacco: Never Alcohol Use Standard Drinks/Week Comments Not Currently 0 (1 standard drink = 0.6 oz pur e alcohol) Depression Answer Date Recorded Patient Health Questionnaire-9 Score 13 03/21/2024 Patient Health Questionnaire-9 Score 13 03/21/2024 Last PHQ-9: Questionnaire Data Not on file 0 03/21/2024 Housing Stability Answer Date Recorded What is your housing situation today? I have [place] [place] 01/22/[address] you li ve. Do you have problems with any of the following? None of the above 01/22/2025 Food Insecurity Answer Date Recorded Within the past 12 months, y ou worried that your food would run out before you got money to buy more: Never True 01/22/2025 Within the past 12 months,th e food you bought just didn't last and you didn't have enough money to get more: Never True Transportation Answer Date Recorded In the past 12 months, has l ack of transportation kept you from medical appts, meetings, work or from getting things needed for daily living? No 02/27/2024 Utilities Answer Date Recorded In the past 12 months, has t he electric, gas, oil or water company threatened to shut off services in your home? No 01/22/2025 Depression Answer Date Recorded Patient Health Questionnaire-2 Score 0 01/22/2025 Internet Access Answer Date Recorded Internet Access Q1 Yes 03/04/2024 Internet Access Q2 Not on file 03/04/2024 Comments No Sex and Gender Information Value Date Recorded Sex Assigned at Female 05/02/2022 10:16 AM EDT Legal Sex Female 10:16 AM EDT Gender Identity Female 05/02/2022 10:16 AM EDT Sexual Orientation Straight 05/02/2022 10 :16 AM EDT documented as of this encounter Miscellaneous Notes * Telephone Encounter - Noy Song [place] - 06/17/2025 9:36 AM EST Chart Prep Labs: not done Images: not done Referrals: not applicable Vaccines due: Covid, Flu, Hep B, and RSV Screenings: mammogram Overdue care gaps: Not applicable documented in this encounter Plan of Treatment Not on file documented as of this encounter Visit Diagnoses Not on filedocumented in this encounter Additional Health Concerns Assessment Noted Time PHQ-9 Depression Total Score: 13 024 2:19 PM EDT documented as of this encounter Care Teams Rough Carpenter Relationship Specialty Start Date End Date Elizabeth Hoffman ANP [address] [place] [address] PCP - General Family Medicine 05/29/19 Arsenio Yeh 09/10/22 documented as of this encounter
--- OUTSIDE RECORDS SUMMARY | 2025-06-19 10:16 | XMS_ITS | Encounter Summary ---
Author Organization [employer] Address [address] [place] [address] Care Team Providers Care Surgery Center Administrator Name Role Phone Elizabeth Hoffman Primary Care Provider [phone] Reason for Visit * Reason Onset Date Comments Durable Medical Equipment 08/23/2022 Encounter Details Date Type Department Care Team ([facility] st Contact Info) Description 08/23/2022 Telephone [facility] [address] [place] [address] Elizabeth Hoffman ANP [address] [place] [address] Durable Medical Equipment Social History Tobacco Use Types Packs/Day Years Used Date Smoking Tobacco: Never Smokeless Tobacco: Never Alcohol Use Standard Drinks/Week Comments Not Currently 0 (1 standard drink = 0.6 oz pur e alcohol) Comments Unknown Sex and Gender Information Value Date Recorded Sex Assigned at Female 05/02/2022 10:16 AM EDT Legal Sex Female 10:16 AM EDT Gender Identity Female 05/02/2022 10:16 AM EDT Sexual Orientation Straight 05/02/2022 10 :16 AM EDT COVID-19 Exposure Response Date Recorded In the last 10 days, have yo u been in contact with someone who was confirmed or suspected to have Coronavirus/COVID-19? No / Unsure 08/17/2022 2:16 PM EST documented as of this encounter Miscellaneous Notes * Telephone Encounter - Samantha Dorantes - 08/23/2022 12:41 PM EST Rx generated for gloves and bladder control pads * Telephone Encounter - Faby Tanner - 08/23/2022 11:43 AM EST Tc from [facility] requesting a New Script for Gloves, Panty Liners and Sanitizers. Please contact [facility] for any questions at [phone] documented in this encounter Plan of Treatment Not on file documented as of this encounter Visit Diagnoses Not on filedocumented in this encounter Care Teams Surgery Center Administrator Relationship Specialty Start Date End Date Elizabeth Hoffman ANP [address] [place] [id number] PCP - General Family Medicine 05/29/19 Arsenio Yeh 09/10/22 documented as of this encounter
--- OUTSIDE RECORDS SUMMARY | 2025-06-19 10:16 | XMS_ITS | Encounter Summary ---
Author Organization [employer] Address [address] [place] [address] Care Team Providers Care Bakery And Deli Sales Manager Name Role Phone Elizabeth Hoffman Primary Care Provider [phone] Encounter Details Date Type Department Care Team (Late st Contact Info) Description 09/06/2022 Abstract [facility] [address] [place], [place] [phone] Eliazbeth Hoffman ANP [address] [place], [place] [phone] Social History Tobacco Use Types Packs/Day Years [...] PM EST documented as of this encounter Plan of Treatment Not on file documented as of this encounter Visit Diagnoses Not on filedocumented in this encounter Care Teams Bakery And Deli Sales Manager Relationship Specialty Start Date End Date Elizabeth Hoffman ANP [address] [place] [id number] PCP - General Family Medicine 05/29/19 Arsenio Yeh 09/10/22 documented as of this encounter
--- OUTSIDE RECORDS SUMMARY | 2025-06-19 10:16 | XMS_ITS | Encounter Summary ---
Author Organization [employer] Address [address] [facility] 7t [place] [address] Care Team Providers Care Entrepreneur Name Role Phone Elizabeth Hoffman Primary Care Provider [phone] Reason for Visit * Reason Comments Med Refill Encounter Details Date Type Department Care Team ([facility] st Contact Info) Description 11/30/2023 Refill [facility] [address] [place], [place] [phone] Elizabeth Hoffman ANP [address] [place] [address] Severe recurrent major depression without psychotic features (CMS/HCC) Social History Tobacco Use Types Packs/Day Years Used Date Smoking Tobacco: Unknown Passive Smoke Exposure: Past Smokeless Tobacco: Never Alcohol Use Standard Drinks/Week Comments Not Currently 0 (1 standard drink = 0.6 oz pur e alcohol) Depression Answer Date Recorded Patient Health Questionnaire-9 Score 13 09/18/2023 Patient Health Questionnaire-9 Score 13 09/18/2023 Last PHQ-9: Questionnaire Data Not on file 0 09/18/2023 Housing Stability Answer Date Recorded What is your housing situation today? I have [place]orge [place] 09/14/[address] you li ve. Do you have problems with any of the following? I am not sure 09/14/2023 Food Insecurity Answer Date Recorded Within the past 12 months, y ou worried that your food would run out before you got money to buy more: Never True 09/14/2023 Within the past 12 months,th e food you bought just didn't last and you didn't have enough money to get more: Never True Transportation Answer Date Recorded In the past 12 months, has l ack of transportation kept you from medical appts, meetings, work or from getting things needed for daily living? I am not sure 09/14/2023 Utilities Answer Date Recorded In the past 12 months, has t he electric, gas, oil or water company threatened to shut off services in your home? No 09/14/2023 Depression Answer Date Recorded Patient Health Questionnaire-2 Score 4 09/18/2023 Comments No Sex and Gender Information Value Date Recorded Sex Assigned at Female 05/02/2022 10:16 AM EDT Legal Sex Female 10:16 AM EDT Gender Identity Female 05/02/2022 10:16 AM EDT Sexual Orientation Straight 05/02/2022 10 :16 AM EDT documented as of this encounter Plan of Treatment Not on file documented as of this encounter Visit Diagnoses Diagnosis Severe recurrent major depression without psychotic features (CMS/HCC) (HCC) Major depressive disorder, recurrent episode, severe, without mention of psychotic behavior documented in this encounter Additional Health Concerns Assessment Noted Time PHQ-9 Depression Total Score: 13 024 10:06 AM EDT documented as of this encounter Care Teams Entrepreneur Relationship Specialty Start Date End Date Elizabeth Hoffman ANP [address] [place] [address] PCP - General Family Medicine 05/29/19 Arsenio Yeh 09/10/22 documented as of this encounter
--- OUTSIDE RECORDS SUMMARY | 2025-06-19 10:16 | XMS_ITS | Encounter Summary ---
Author Organization [employer] Address [address] [facility] 7t [place] [address] Care Team Providers Care Blind Teacher Name Role Phone Elizabeth Hoffman Primary Care Provider [phone] Encounter Details Date Type Department Care Team (Latest Contact Info) Description 06/19/2025 Travel Social History Tobacco Use Types Packs/Day Years [...] documented as of this encounter Care Teams Blind Teacher Relationship Specialty Start Date End Date Elizabeth Hoffman ANP [address] [place] [address] PCP - General Family Medicine 05/29/19 Arsenio Yeh 09/10/22 documented as of this encounter
--- OUTSIDE RECORDS SUMMARY | 2025-06-19 10:16 | XMS_ITS | Encounter Summary ---
Author Organization [employer] Address [address] [place] [address] 7t [place] [address] Care Team Providers Care Sheet Rock Layer Name Role Phone Elizabeth Hoffman Primary Care Provider [phone] Reason for Visit * Reason Comments Med Refill Encounter Details Date Type Department Care Team ([facility] st Contact Info) Description 01/13/2023 Refill [facility] MED[facility]INE [address] [place] [address] Elizabeth Hoffman ANP [address] [place] [address] Recurrent major depressive disorder, remission status unspecified (CMS/HCC) Social History Tobacco Use Types Packs/Day [...] as of this encounter Visit Diagnoses Diagnosis Recurrent major depressive disorder, remission status unspecified (CMS/HCC) documented in this encounter Care Teams Sheet Rock Layer Relationship Specialty Start Date End Date Elizabeth Hoffman ANP [address] [place] [address] PCP - General Family Medicine 05/29/19 Arsenio Yeh 09/10/22 documented as of this encounter
--- OUTSIDE RECORDS SUMMARY | 2025-06-19 10:16 | XMS_ITS | Clinical Summary ---
Author Organization [employer] Address [address] [facility] 7t [place] [address] Care Team Providers Care Interior Design Coordinator Name Role Phone Elizabeth Hoffman Primary Care Provider [phone] Allergies Active Allergy Reactions Criticality Noted Date Comments Ibuprofen Unknown 06/28/2016 Latex Dermatitis 11/30/2023 Medications * This document contains information received from the source organization and may not represent a complete record from that organization. triamcinolone (Kenalog) 0.1 % creamIndication s:Seborrheic dermatitis Apply topically if needed in the morning and at bedtime for rash. 30 g 2 3 Active acetaminophen (Tylenol Extra Strength) 500 MG tabletIndicatio ns:Acute pain of right knee Take 1 tablet (500 mg) by mouth every 6 (six) hours if needed for mild pain, fever, headaches or moderate pain. 30 tablet 3 Active ketoconazole (NIZOral) 2 % shampooIndicati ons:Seborrheic dermatitis apply by topical route every day or every other day to the affected area(s), lather, leave in place for 5 minutes, and then rinse off with water 120 mL 3 4 Active Multiple Vitamin (Multivitamin) tablet Take 1 tablet by mouth in the morning. 90 tablet 3 4 Active FLUoxetine (PROzac) 40 MG capsuleIndicati ons:Anxiety and depression TAKE 1 CAPSULE BY MOUTH BY MOUTH EVERY MORNING 90 capsule 1 5 Active metFORMIN (Glucophage) 500 MG tabletIndicatio ns:Type 2 Diabetes Mellitus Take twice daily by mouth with a meal 180 tablet 3 5 Active risperiDONE (RisperDAL) 2 MG tabletIndicatio ns:Major Depressive Disorder TAKE 1 TABLET BY MOUTH EVERY MORNING 30 tablet 1 5 Active folic acid (Folvite) 1 MG tabletIndicatio ns:Vitamin deficiency TAKE 1 TABLET BY MOUTH EVERY MORNING 30 tablet 11 5 Active traZODone (Desyrel) 100 MG tabletIndicatio ns:Severe recurrent major depression without psychotic features (CMS/HCC) (HCC) TAKE 1 TABLET BY MOUTH AT BEDTIME NEEDED FOR SLEEP 30 tablet 2 5 Active albuterol 108 (90 Base) MCG/ACT inhaler Inhale 2 puffs every 4 (four) hours if needed for wheezing or shortness of breath. 18 g 1 5 Active ketoconazole (NIZOral) 2 % creamIndication s:Seborrheic dermatitis Apply topically Once per day. To affected areas 60 g 1 5 Active Active Problems Problem Noted Date Diagnosed Date Primary osteoarthritis of left knee 01/22/2025 Intertrigo 01/08/2025 Assessment & Plan (01/09/2025 3:36 PM EDT): Severe diffuse eythema, both topical and oral agents prescribed. Pt advised to avoid applying cream to open areas. Mixed stress and urge urinary incontinence 12/31 Anxiety 03/15/2024 Assessment & Plan (03/21/2024 2:34 PM EDT): During IBH Consult Mary presenting with depressed mood, hopelessness, irritable mood, loss of interests/pleasure , sense of isolation/loneliness , change in appetite or weight overeating, changes in sleep difficulty falling asleep, psychomotor retardation, fatigue/loss of energy, difficulty concentrating and excessive worry/anxiety, difficulty controlling worry, anxiety/worry associated to restlessness and/or feeling keyed-up/On edge , easily fatigued , difficulty concentrating and/or mind going blank , irritability, and sleep disturbance difficulty falling asleep, and sense of dread ; for a period of 18+ mo, for most or all symptoms in the context of chronic mental health and lack of social supports. Mary endorsed increase of symptoms due to lack of social support. She currently lives with her sister. Aware of importance of using coping mechanisms. Reports being connected with in the past but lost care. She was referred out to OP therapy. Information given to contact agency. clinician engaged patient with active/reflective listening. Reviewed and assessed for risk, current stressors and protective factors. clinician provided information for [facility] centers and [facility] for same-day appointments. Annual physical exam 09/14/2023 Overview (09/14/2023): Elects colonoscopy - referred 09/2023 PCV20 - accepts today Hgb A1C 6.1 08/14/23, consistent with prediabetes. Saw CNM 08/14/23 for annual exam, Pap NIL/HPV neg 08/2022 Mammo upcoming Spring 2023 per pt Dental - self refer Eye - referred 09/2023 to [facility] Unsteadiness on feet 11/29/2022 Developmental delay 2022 Gastroesophageal reflux disease 2022 Morbid obesity (CMS/HCC) 06/28/2016 Tobacco dependence syndrome 06/28/2016 Overview (02/27/2024): Started smoking at 17. Smoked 1 PPD. Quit approximately 2019. Smoking 1 cig/d now. LDCT to be ordered 02/27/24. Recurrent major depressive episodes, moderate (C MS/HCC) 06/28/2016 Assessment & Plan (03/21/2024 2:34 PM EDT): During IBH Consult Mary presenting with depressed mood, hopelessness, irritable mood, loss of interests/pleasure , sense of isolation/loneliness , change in appetite or weight overeating, changes in sleep difficulty falling asleep, psychomotor retardation, fatigue/loss of energy, difficulty concentrating and excessive worry/anxiety, difficulty controlling worry, anxiety/worry associated to restlessness and/or feeling keyed-up/On edge , easily fatigued , difficulty concentrating and/or mind going blank , irritability, and sleep disturbance difficulty falling asleep, and sense of dread ; for a period of 18+ mo, for most or all symptoms in the context of chronic mental health and lack of social supports. Mary endorsed increase of symptoms due to lack of social support. She currently lives with her sister. Aware of importance of using coping mechanisms. Reports being connected with in the past but lost care. She was referred out to OP therapy. Information given to contact agency. clinician engaged patient with active/reflective listening. Reviewed and assessed for risk, current stressors and protective factors. clinician provided information for [facility] centers and [facility] for same-day appointments. Encounters Date Type Department Care Team Description 06/19/2025 10:00 AM EST Office Visit [facility] [address] [place] [address] Elizabeth Hoffman ANP Encounter for immunization 06/19/2025 Travel 06/17/2025 Telephone [facility] [address] [place] [address] [place] 04/28/[address] [phone] Elizabeth Hoffman ANP chart prep 04/22/2025 Patient Outreach [address] [address] Elizabeth Hoffman ANP Pre-visit Planning ([facility] screening completed on 01/22/25 ) from Last 3 Months Immunizations Immunization Administration Dates Next Due Influenza Injectable Quadriv alant Preservative Free IIV4 MDCK 06/11/2020 Influenza injectable quadriv alent preservative free 2022,03/24/2021,06/11/2019,04/09 Influenza, IIV3, injectable 04/18/2014,1 ,03/22/2012,03/27,05/18/2010,07/24/2009,06/24/2008 ,03/26/2007 Influenza, seasonal, injecta ble, preservative free 06/19/2025,05/01/2024,04/18/2014,04/02,03/22/2012,03/27/2011,05/18/2010 ,07/24/2009,06/24/2008,03/26/2007 Novel [id number], preservative-free 07/24/2009 Pfizer Covid-19 Vaccine 12+ 05/01/2024,,02/25/2021 Pfizer Covid-19 Vaccine 12+ Bivalent 2022 Pfizer Covid-19 Vaccine 12+ deanne-sucrose (Whitman Cap) 12/31/2021 Pneumococcal Conjugate PCV 20 09/14/2023 Pneumococcal Polysaccharide PPSV23 05/19/2014 TD (adult), 2 Lf tetanus tox oid, preservative free, adsorbed 02/08/2006 Td (adult), 5 Lf tetanus tox oid, preservative free, adsorbed 10/06/2016 Tdap 05/13/2013 Zoster, Recombinant 03/24/2021,06/11/2020 Social History Tobacco Use Types Packs/Day Years Used Date Smoking Tobacco: Former Cigarettes Passive Smoke Exposure: Past Smokeless Tobacco: Never Tobacco Cessation:Counseling Given: Not Answered Alcohol Use Standard Drinks/Week Comments Not Currently [...] Orientation Straight 05/02/2022 10 :16 AM EDT Last Filed Vital Signs Vital Sign Reading Time Taken Comments Blood Pressure 120/80 06/19/2025 10:06 AM EST Pulse 88 06/19/2025 10:06 AM EST Temperature 36.3 C (97.3 F) 06/19/2025 10:06 AM EST Respiratory Rate 20 06/19/2025 10:06 AM EST Oxygen Saturation 97% 06/19/2025 10:06 AM EST Inhaled Oxygen Concentration - - Weight 122 kg (269 lb) 06/19/2025 10:06 AM EST Height 154.9 cm (5' 1 ) 06/19/2025 10:06 AM EST Body Mass Index 50.83 06/19/2025 10:06 AM EST Plan of Treatment Health Maintenance Due Date Last Done Comments CT Colonography 1969 Dental Prophylaxis 1969 FIT DNA/Cologuard 1969 FIT 1969 FOBT 1969 HIV Screening 1969 Sigmoidoscopy 1969 Hepatitis C Screening 1987 Hepatitis B Vaccines (1 of 3 - 19+ 3-dose series) 1988 Mammogram 2009 RSV Patients and Patients Aged 60 years or older (1 - Risk 50-74 years 1-dose series) 2019 Dental X-Ray: Bitewings 06/24/2021 06/23/2020, 09/06 COVID-19 Vaccine ( season) 2025 05/01/2024, 2022, 12/31/2021, Additional history exists Dental Oral Exam 05/16/2025 11/12/2024, , 09/06/2016 Depression Monitoring 07/25/2025 01/22/2025, 024 Alcohol/Substance Use Screening 09/16/2025 09/16/2024 Diabetes: Hemoglobin A1C 09/16/2025 025, 02/27/2024, 08/14/2023 Disability Screening 01/22/2026 01/22/2025 SDOH Screening 01/22/2026 01/22/2025 Tobacco Screening 01/22/2026 01/22/2025 DTaP/Tdap/Td Vaccines (3 - Td or Tdap) 10/06/2026 10/06/2016, 05/13/2013, 02/08/2006 Colonoscopy 05/29/2027 05/29/2024 Colorectal Cancer Screening 05/29/2027 Cervical Cancer Screening 08/17/2027 HPV/Cotest 08/17/2027 08/17/2022, 06/14/2017 Pap Smear 08/17/2027 08/17/2022, 06/14/2017 Dental X-Ray: Full Mouth 11/14/2027 025, 06/23/2020, 09/06/2016 Lipid Panel 08/14/2028 08/14/2023 Zoster Vaccines Completed 03/24/2021, 06/11/2020 Pneumococcal Vaccine: 50+ Years Completed 09/14/2023, 05/19/2014 Influenza Vaccine Completed 06/19/2025, , 2022, Additional history exists HIB Vaccines Aged Out No longer eligi ble based on patient's age to complete this topic HPV Vaccines Aged Out No longer eligi ble based on patient's age to complete this topic Hepatitis A Vaccines Aged Out No long er eligible based on patient's age to complete this topic IPV Vaccines Aged Out No longer eligi ble based on patient's age to complete this topic Meningococcal B Vaccine Aged Out No l onger eligible based on patient's age to complete this topic Meningococcal Vaccine Aged Out No dotty jaci eligible based on patient's age to complete this topic RSV under 20 months Aged Out No longe r eligible based on patient's age to complete this topic Rotavirus Vaccines Aged Out No longer eligible based on patient's age to complete this topic Procedures Procedure Name Priority Date/Time Associated Diagnosis Comments PANORAMIC RADIOGRAPHIC IMAGE Routine 11/12/2024 9:00 AM EDT PERIODIC ORAL EVALUATION - ESTABLISHED PATIENT Routine 11/12/2024 9:00 AM EDT POCT GLYCATED HEMOGLOBIN, TOTAL Routine 09/16/2024 2:49 PM EDT Prediabetes HM COLONOSCOPY Routine 05/29/2024 LIPID PANEL, STANDARD Routine 08/14/2023 9:42 AM EST Elevated blood sugar IMAGE-GUIDED PAP W/AGE BASED SCR PROTOCOLS Routine 08/17/2022 12:00 AM EST INTRAORAL - COMPLETE SERIES OF RADIOGRAPHIC IMAGES Routine 06/23/2020 12:00 AM EST from Last 3 Months or Most Recently Relevant to Health Maintenance Results * (ABNORMAL) POCT HGB A1C (09/16/2024 2:49 PM EDT) Hemoglobin A1C 6.6(A) 4.0 - 6.0 % QC Media Lot # [id number] Lot# Expiration Date Blood 09/16/2024 2:49 PM EDT Elizabeth [facility] POINT OF CARE TEST ENTER/EDIT OR DERABLES Final Result * Colonoscopy (05/29/2024) Pathologist [facility] Colonoscopy Normal Normal Narrative Bibi Saleh - 05/29/2024 Colonoscopy order added Historical Provider MD HEALTH MAINTENANCE Final Result * (ABNORMAL) Lipid Panel, Standard (08/14/2023 9:42 AM EST) Triglycerides 189(H) <150 mg/dL [facility] Comment:Desirable Triglyceri de: less than 150 mg/dLBorderline High Triglyceride 150-199 mg/dLHigh Triglyceride: 200-499 mg/dLVery High Triglyceride: greater than or equal to 5OO mg/dL Cholesterol 187 <200 mg/dL [facility] Comment:Desirable Cholestero l: less than 200 mg/dLBorderline High Cholesterol: 200-239 mg/dLHigh Cholesterol: greater than 239 mg/dL LDL Cholesterol Calculated 105(H) <100 mg/dL [facility] Comment:Desirable LDL: less than 100 mg/dLNear Optimal/Above Optimal LDL: 110- 129 mg/dLBorderline High LDL: 130-159 mg/dLHigh LDL: 160-189 mg/dLVery High LDL: greater than or equal to 190 mg/dL HDL Cholesterol 45 >40 mg/dL [facility] Comment:Desirable HDL: great er than 40 mg/dL Note: This HDL assay may give artificially low results in patients with liver disease. Blood Venous blood specimen / Unknown 08/14/2023 9:42 AM EST 08/14/2023 11:34 AM EST Julieta Leblanc [facility] BLOOD ORDERABLES Heidi de luna Result [facility] [address] [place] [phone] * Image-Guided Pap with Age-Based Screening Protocols (08/17/2022 12:00 AM EST) Comment [facility] [place] [facility] Comment: This order for age-based cervical cancer and STI screening follows ACOG guidelines(PB 168, 140, KOH068). See individual assays for performing site location. Clinical Information: None given [facility] LMP: NONE GIVEN [employer] Prev. PAP: NONE GIVEN [facility] Prev. BX: NONE GIVEN [facility] SOURCE: None given Quu Statement Of Adequacy: Quu Comment: Satisfactory for evaluation. Endocervical/transformation zone component present. Interpretation/ Result: Negative for intraepithelial lesion or malignancy. [facility] [place] [facility] Comment: This Pap test has been evaluated with computer assisted technology. [facility] [place] [facility] Cytotechnologis t: [facility] [place] [facility] Comment: JIMENEZ, CT(ASCP) CT screening location: [address] [address] (Always Message) Quu Comment: EXPLANATORY NOTE: The Pap is a screening test for cervical cancer. It is not a diagnostic test and is subject to false negative and false positive results. It is most reliable when a satisfactory sample, regularly obtained, is submitted with relevant clinical findings and history, and when the Pap result is evaluated along with historic and current clinical information. HPV nRNA E6/E7 Not Detected Not Detected [facility] Comment: Methodology: Manager Inspection-Mediated Amplification This assay detects E6/E7 viral messenger RNA (mRNA) from 14 high-risk HPV types (16,18,31,33,35,39,45,51,52,56,58,59,66,68). Cervical sources are required for HPV testing. If a vaginal source from a patient who has had a total hysterectomy with removal of cervix was submitted, please contact the testing laboratory for alternative testing options. For additional information, please refer to http://education.WOWash/faq/PYY483e5 (This link if provided for information/ educational purposes only.) 08/17/2022 08/18/2022 12: 03 PM EST Narrative [facility] - 08/22/2022 10:01 AM EST FASTING: UNKNOWN Julieta Leblanc [facility] BLOOD ORDERABLES Heidi de luna Result [facility] [address], [place] [address] [facility] [address] [facility], ([address]) [place] [address] from Last 3 Months or Most Recently Relevant to Health Maintenance Insurance [facility] ONE CARE < 65 [place] [id number] [facility] MEDICAID STAND ADULT Care Teams Interior Design Coordinator Relationship Specialty Start Date End Date Elizabeth Hoffman ANP [address] [place] [address] PCP - General Family Medicine 05/29/19 Arsenio Yeh 09/10/22
--- OUTSIDE RECORDS SUMMARY | 2025-06-19 10:16 | XMS_ITS | Encounter Summary ---
Author Organization [employer] Address [address] [facility] 7t [place] [address] Care Team Providers Care Electronic Musical Instrument Repairer Name Role Phone Elizabeth Hoffman Primary Care Provider [phone] Encounter Details Date Type Department Care Team (Late st Contact Info) Description 11/07/2022 Abstract [facility] MEDICINE [address] [place] [address] Elizabeth Hoffman ANP [address] [place], [place] [phone] Social History Tobacco Use Types Packs/Day Years [...] suspected to have Coronavirus/COVID-19? No / Unsure 10/25/2022 2:49 PM EDT documented as of this encounter Plan of Treatment Not on file documented as of this encounter Visit Diagnoses Not on filedocumented in this encounter Care Teams Electronic Musical Instrument Repairer Relationship Specialty Start Date End Date Elizabeth Hoffman ANP [address] [place] [address] PCP - General Family Medicine 05/29/19 Arsenio Yeh 09/10/22 documented as of this encounter
[2025-06-19 11:05] LABS: MANUAL DIFF FLAG NO
[2025-06-19 11:26] LABS: Hematocrit 38.6 % (37.0-47.0); Hemoglobin 12.1 g/dl (12.0-16.0); Imm Gran Abs Auto 0.04 X10*3/uL (0.00-0.03); Imm Gran Pct Auto 0.3 % (0.0-0.4); Lymphocytes Absolute Auto 2.6 X10*3/uL (1.2-4.9); Mean Corpuscular HGB Conc 31.3 g/dl (31.0-35.0); Mean Corpuscular Hemoglobin 27.5 pg (27.0-33.0); Mean Corpuscular Volume 87.7 fL (80.0-98.0); NRBC Abs Auto 0.000 X10*3/uL (0.0-0.012); NRBC Pct Auto 0.0 /100WBC (0.0-0.2); Platelet Count 341 X10*3/uL (160-400); Red Blood Count 4.40 X10*6/uL (4.20-5.50); White Blood Count 11.5 X10*3/uL (4.8-10.8)
[2025-06-19 12:12] LABS: Alanine Aminotransferase 24 U/L (0-31); Albumin Level 3.9 g/dL (3.5-5.0); Alkaline Phosphatase 98 U/L (39-117); Anion Gap 14 (12-20); Aspartate Amino Transferase 42 U/L (5-31); Blood Urea Nitrogen 13 mg/dL (9-16); Calcium 9.0 mg/dL (8.4-10.2); Carbon Dioxide 26 mmol/L (22-29); Chloride 106 mmol/L (96-108); Cholesterol 193 mg/dL (<200); Estimated Glomerular Filt Rate > 60; HDL Cholesterol 44 mg/dL (>40); Potassium 4.0 mmol/L (3.3-5.1); Sodium 142 mmol/L (135-145); Total Protein 7.4 g/dL (6.5-8.0); Triglycerides 217 mg/dL (<150)
[2025-06-19 12:37] LABS: Folate 18.6 ng/mL (> or = 4.0); Vitamin B12 370 pg/mL (200-900)
[2025-06-19 12:41] LABS: Alanine Aminotransferase 24 U/L (0-31); Albumin Level 3.9 g/dL (3.5-5.0); Alkaline Phosphatase 99 U/L (39-117); Anion Gap 12 (12-20); Aspartate Amino Transferase 42 U/L (5-31); Blood Urea Nitrogen 13 mg/dL (9-16); Calcium 9.0 mg/dL (8.4-10.2); Carbon Dioxide 27 mmol/L (22-29); Chloride 106 mmol/L (96-108); Cholesterol 193 mg/dL (<200); Estimated Glomerular Filt Rate > 60; HDL Cholesterol 45 mg/dL (>40); Potassium 4.0 mmol/L (3.3-5.1); Sodium 141 mmol/L (135-145); Total Protein 7.5 g/dL (6.5-8.0); Triglycerides 221 mg/dL (<150)
[2025-06-19 13:43] LABS: HIV Num 1 0.08 S/CO (0.00-0.99); ~HepC Num1 0.12 S/CO (0.00-0.79); ~Hepatitis C Antibody Nonreactive (Nonreactive)
[2025-06-19 13:44] LABS: Syphilis Screen Nonreactive (Nonreactive)
[2025-06-19 13:53] LABS: HBS Num1 35.02 mIU/mL (0-7.99); HBc Num1 0.08 S/CO (0.00-0.79); HBsAGNum1 0.35 S/CO (0.00-0.99); HIV Num 1 0.06 S/CO (0.00-0.99); Hepatitis A Antibody IgM 0.33 Index (0-0.79); Hepatitis B Surface Antigen Negative (Negative); ~HepC Num1 0.11 S/CO (0.00-0.79); ~Hepatitis A Antibody IgM Nonreactive (Nonreactive); ~Hepatitis B Surface Antibody REACTIVE (Nonreactive); ~Hepatitis C Antibody Nonreactive (Nonreactive)
== END 2025-06-19 09:07 | disposition home or self-care (01) ==
LOC: HO.HHCL 09:06
PROVIDERS: PCP Nurse Practitioner Primary Care; Referring Provider Nurse Practitioner Psychiatric/Mental Health; Visit Provider Nurse Practitioner Primary Care
DX: Z11.4 Encounter for screening for human immunodeficiency virus [HIV] (principal); Z01.84 Encounter for antibody response examination; Z13.21 Encounter for screening for nutritional disorder; R73.03 Prediabetes; Z11.3 Encounter for screening for infections with a predominantly sexual mode of transmission; E66.01 Morbid (severe) obesity due to excess calories; Z79.899 Other long term (current) drug therapy
CPT/HCPCS: 36415; 80053; 80061; 80307; 82607; 82652; 82672; 82746; 83036; 84144; 84443; 84445; 85025; 86592; 86704; 86706; 86709; 86780; 86803; 87340; 87389

== ENCOUNTER 2025-06-19 11:20 | Emergency (ER) | payer OTHER, SELFPAY ==
--- NOTE | ~2025-06-19 | CT_ITS ---
EXAMINATION: CT HEAD WITHOUT CONTRAST CLINICAL INFORMATION: Mental status changes COMPARISON: None available. TECHNIQUE: Contiguous axial imaging was performed from the skull base to vertex without intravenous administration of contrast. This CT examination was performed using dose optimization techniques as appropriate, variously including the following: *Automated exposure control *Adjustment of mA and/or kV according to patient size (this includes techniques or standardized protocols for targeted exams where dose is matched to indication/reason for exam; i.e. extremities or head) *Use of iterative reconstruction technique FINDINGS: There is no evidence of intracranial hemorrhage or extra-axial fluid collection. There is no mass effect, or edema. No CT evidence of acute territorial infarct. Ventricles, sulci, and cisterns are normal in size and configuration for patient age. No hydrocephalus. No midline shift. Negative hyperdense MCA sign. Negative insular ribbon sign. No significant white matter attenuation abnormalities. Partial empty sella. Globes and orbital contents image normally. No extracranial soft tissue abnormalities. Cerumen plug in the left EAC. The paranasal sinuses, mastoid air cells, and tympanic cavities are normally aerated. No suspicious bony abnormalities. There are no acute fractures evident. CT/CT head/brain wo IV con IMPRESSION: No acute intracranial abnormality. Electronically signed by: Rasta Finch MD 06/19/2025 02:08 PM [facility]
[2025-06-19 11:32] VITALS: BP 142/71; BP 144/80; PULSE 108; PULSE 96; RESP 23; TEMP 36.4; O2SAT 94; O2SAT 96; BMI 55.9
--- NOTE | 2025-06-19 12:09 | PC.NURSE ---
patient is agitated, unredirectable. patient family member left ED, attempted to call family for more information, phone number on file is incorrect. tried to use chair alarm, patient is getting out of bed. patient currently has sitter due to agitation, attempting to get out of bed with AMS and fall risk.
[2025-06-19 12:32] LABS: Resp Syncy Virus RNA Qual PCR NEGATIVE (Negative); SARS COV2 PCR INHOUSE NEGATIVE (Negative)
--- NOTE | 2025-06-19 12:51 | PC.NURSE ---
patient attempting to get out of bed despite sitter. patient family member now at bedside, informed her phone number in the chart is incorrect and we have been trying to reach her for collateral information. patient family member unable to redirect patient at this time, ED attending made aware of patient, awaiting patient to be picked up by provider
--- NOTE | 2025-06-19 12:53 | MHC.EDTECH ---
PT keeps attempting OOB, not following directions. Pt states that she needs to use the bathroom. Pt assisted to the commode 6 times and unable to void stating that she does not have to use the bathroom. Pt was bladder scanned with 70mL in her bladder.
--- NOTE | 2025-06-19 13:39 | PC.NURSE ---
patient required IM medications for medical eval to be completed. patient sat in bed and was cooperative for manager medical affairs, patient is now on tele monitor, family at bedside, sitter at bedside.
[2025-06-19 13:47] VITALS: BP 165/85; PULSE 96; RESP 16; TEMP 36.8; O2SAT 95
[2025-06-19 13:51] LABS: MANUAL DIFF FLAG NO
[2025-06-19 13:53] LABS: Hematocrit 36.2 % (37.0-47.0); Hemoglobin 11.9 g/dl (12.0-16.0); Imm Gran Abs Auto 0.06 X10*3/uL (0.00-0.03); Imm Gran Pct Auto 0.5 % (0.0-0.4); Lymphocytes Absolute Auto 1.9 X10*3/uL (1.2-4.9); Mean Corpuscular HGB Conc 32.9 g/dl (31.0-35.0); Mean Corpuscular Hemoglobin 28.4 pg (27.0-33.0); Mean Corpuscular Volume 86.4 fL (80.0-98.0); NRBC Abs Auto 0.000 X10*3/uL (0.0-0.012); NRBC Pct Auto 0.0 /100WBC (0.0-0.2); Platelet Count 310 X10*3/uL (160-400); Red Blood Count 4.19 X10*6/uL (4.20-5.50); White Blood Count 11.9 X10*3/uL (4.8-10.8)
[2025-06-19 14:10] LABS: Alanine Aminotransferase 24 U/L (0-31); Albumin Level 3.8 g/dL (3.5-5.0); Alkaline Phosphatase 92 U/L (39-117); Anion Gap 12 (12-20); Aspartate Amino Transferase 37 U/L (5-31); Blood Urea Nitrogen 12 mg/dL (9-16); Calcium 8.7 mg/dL (8.4-10.2); Carbon Dioxide 26 mmol/L (22-29); Chloride 107 mmol/L (96-108); Creatinine Clr Calc Pharmacy 105.9; Estimated Glomerular Filt Rate > 60; Potassium 3.5 mmol/L (3.3-5.1); Sodium 141 mmol/L (135-145); Total Protein 7.1 g/dL (6.5-8.0)
[2025-06-19 15:09] LABS: Appearance Urine Turbid; Glucose Urine UA Negative (Negative); PH 6.0 (5.0-9.0); Specific Gravity - Urine >= 1.030 (1.005-1.025); UMIC TRIGGER UACC YES
--- NOTE | 2025-06-19 15:11 | PC.NURSE ---
patient has remained calm and cooperative after IM medication, family at bedside, straight cath performed, 100cc output.
[2025-06-19 15:19] LABS: Cannabinoid Screen Urine Not Detected (Not Detect)
--- NOTE | 2025-06-19 15:31 | PC.NURSE ---
patient had tuna sandwich and gingerale
--- NOTE | 2025-06-19 15:47 | ED_ITS ---
HPI - Altered Mental Status General Chief Complaint: Altered Mental Status Stated Complaint: AMS, increased slurred speech Time Seen by Provider: 06/19/25 12:53 Source: family Mode of arrival: EMS Limitations: altered mental status History of Present Illness ED Provider: Dr. Trey Boateng HPI narrative: 54-year-old female with a history of developmental delay, asthma, GERD, depression who was presents emergency department for evaluation of agitation and altered mental status. The information came from the patient's sister Loree who is also the patient's PLASTICS DESIGN ENGINEER. According to her sister, the patient has been having episodes of agitation over the last 6 months. Over the last week her agitation in his gotten worse. Today she went to see her provider and given her agitation she was referred to the emergency department for evaluation. In the emergency department the patient does appear to be agitated, she will not sit on the stretcher, she is not redirectable. Related Data Home Medications ?Medication ?Instructions ?Recorded ?Confirmed fluoxetine 40 mg capsule 40 mg PO DAILY 11/30/23 folic acid 1 mg tablet 1 mg PO QAM 11/30/23 mometasone-formoterol HFA 100 2 puff inhalation mcg-5 mcg/actuation aerosol inhaler (Dulera) multivitamin (One Daily 1 tab PO QAM 11/30/23 Multivitamin tablet) risperidone 2 mg tablet 2 mg PO BEDTIME 11/30/23 trazodone 100 mg tablet 100 mg PO BEDTIME 11/30/23 Previous Rx's ?Medication ?Instructions ?Recorded risperidone 2 mg tablet 2 mg PO BID 30 days #60 tabs 06/19/25 Allergies Allergy/AdvReac Type Severity Reaction Status Date / Time latex (LATEX) Allergy Unknown ECZEMA Verified 06/19/25 11:38 ibuprofen (From MOTRIN) AdvReac Unknown FAINTED Verified 06/19/25 11:38 SEASONAL ALLERGIES Allergy Unknown SNEEZING Uncoded 06/19/25 11:38 PMFSH Past Medical History PMFSH Narrative: Social history: She lives with her sister who was also her PLASTICS DESIGN ENGINEER. She does a 10 day program during the day. Patient does smoke cigarettes, she does not drink alcohol, she does not use drugs Medical History GERD (gastroesophageal reflux disease) Morbid obesity Depression Family History Family History Family/Other Skin cancer Maternal Aunt Vaginal cancer Social History Social History Are you a primary team primary care physician to a significant other at home: No Do you presently have visiting nurse or other home services: No Alcohol intake: never Patient Tobacco Use Status: Never used Tobacco Physical Exam ED Vital Signs: Vital Signs - 24 hr 06/19/25 11:32 06/19/25 13:47 Temperature 97.5 F 98.3 F Pulse Rate 108 H 96 Respiratory Rate 23 H 16 Blood Pressure 142/71 H 165/85 H Pulse Oximetry 96 95 Oxygen Delivery Method Room Air Room Air BMI result Body Mass Index 55.9 Vital signs revealed an elevated heart rate of 108 and elevated blood pressure of 142/71 otherwise unremarkable Exam: Weight 129.8 kg, elevated BMI 55.9 kilograms/meters squared General: Awake, alert in no distress, patient is smiling, she will not sit on the stretcher, she continues to try to get up and walk away despite her sister being at her bedside. Head: Normocephalic, atraumatic EENT: PERRL, sclera and conjunctiva are normal, mouth with no erythema or exudates Neck: Supple, no adenopathy Lung: breath sounds symmetric, no wheezing, no rales and no rhonchi Chest: symmetric movement, nontender Heart: regular rate and rhythm, normal S1, S2 no murmurs or rubs Abdomen: soft, non-tender, nondistended, normal bowel sounds Back: no vertebral tenderness, no CVAT Extremities: no deformities, moves all extremities symmetrically, no edema Neuro: Awake, alert, nonverbal, cranial nerves 2-12 intact, moves all extremities symmetrically Medications Administered Discontinued Medications Generic Name Dose Route Start Last Admin Trade Name Freq PRN Reason Stop Dose Admin Diphenhydramine HCl 50 mg 06/19/25 13:20 06/19/25 13:30 Diphenhydramine Hcl 50 Mg/Ml Vial IM 06/19/25 13:21 50 mg ONCE ONE Administration Haloperidol Lactate 10 mg 06/19/25 13:20 06/19/25 13:30 Haloperidol Lactate 5 Mg/Ml Vial IM 06/19/25 13:21 10 mg ONCE ONE Administration Midazolam HCl 4 mg 06/19/25 13:20 06/19/25 13:30 Midazolam Hcl 2 Mg/2 Ml Vial IM 06/19/25 13:21 4 mg ONCE ONE Administration Medical Decision Making Medical Decision Making [facility] Narrative: 54-year-old female with a history of developmental delay, asthma, GERD, depression who was presents emergency department for evaluation of agitation and altered mental status. The information came from the patient's sister Loree who is also the patient's PLASTICS DESIGN ENGINEER. According to her sister, the patient has been having episodes of agitation over the last 6 months. Over the last week her agitation in his gotten worse. Today she went to see her provider and given her agitation she was referred to the emergency department for evaluation. In the emergency department the patient does appear to be agitated, she will not sit on the stretcher, she is not redirectable. Vital signs revealed an elevated blood pressure and an elevated heart rate, physical exam did reveal that the patient was hyperactive but not really agitated. Differential diagnosis: ?Includes but is not limited to stroke, intracranial bleed, agitation, decompensation of psychiatric illness, urinary tract infection, anemia, electrolyte abnormalities Course: 16:21 I did discuss the need for medical sedation with the patient's sister and she agree that this has necessary in order to complete the medical workup. Patient was given Haldol 10 mg IM, Benadryl 50 mg IM and Versed 4 mg IM with good effect. My interpretation patient's laboratory evaluation is as follows: Normocytic anemia with an H&H of 11.9 and 36.2. Elevated AST 37. Elevated glucose 121. COVID-19, influenza and RSV tests were negative. Urinalysis was positive for protein. Microscopic revealed 0-2 RBCs 0-5 WBCs, limited to +bacteria. Urine tox screen was positive for benzodiazepines but she did received Versed IM prior to getting a urinalysis. CT scan of the brain did not reveal any acute abnormalities to explain the patient's hyperactivity had agitation. I did discuss this with the patient's sister. Suspect that the patient has decompensation of her underlying psychiatric illness and that she should follow up with her prescribing provider for further evaluation. I did review the patient's medications and felt that she may benefit from increasing for Risperdal dose. Currently she is taking risperidone 1 mg b.i.d. prn and Risperdal 4 mg at night. The patient was given a doses Zyprexa 10 mg prior to leaving the ED. Differential Diagnosis Differential Diagnoses: The differential diagnosis associated with the presentation includes (See above) Admission/Observation Consideration of admission/observation: Escalation of care including admission/observation considered (Yes) Lab Data MDM Lab Attestation statement: I reviewed the patient's lab results. 06/19/25 13:41 06/19/25 13:41 Labs: Lab Results 06/19/25 06/19/25 06/19/25 Range/Units 11:47 13:41 14:51 WBC 11.9 H (4.8-10.8) X10*3/uL RBC 4.19 L (4.20-5.50) X10*6/uL Hgb 11.9 L (12.0-16.0) g/dl Hct 36.2 L (37.0-47.0) % MCV 86.4 (80.0-98.0) fL MCH 28.4 (27.0-33.0) pg MCHC 32.9 (31.0-35.0) g/dl RDW 14.7 (11.0-16.0) % Plt Count 310 (160-400) X10*3/uL MPV 9.7 (9.4-12.3) fL Immature Gran % (Auto) 0.5 H (0.0-0.4) % Neut % (Auto) 78.3 H (45-73) % Lymph % (Auto) 16.3 L (20-40) % Cow[place] % (Auto) 3.5 (2-11) % Eos % (Auto) 0.8 (0-4) % Baso % (Auto) 0.6 (0-2) % Lymph # (Auto) 1.9 (1.2-4.9) X10*3/uL Cowley # (Auto) 0.4 (0.1-1.2) X10*3/uL Eos # (Auto) 0.1 (0.0-0.4) X10*3/uL Baso # (Auto) 0.1 (0.0-0.2) X10*3/uL Abs Immat Gran (auto) 0.06 H (0.00-0.03) X10*3/uL Absolute Neuts (auto) 9.3 H (2.0-8.3) x10*3/uL Absolute Nucleated RBC 0.000 (0.0-0.012) X10*3/uL Nucleated RBC % (auto) 0.0 (0.0-0.2) /100WBC Sodium 141 (135-145) mmol/L Potassium 3.5 (3.3-5.1) mmol/L Chloride 107 (96-108) mmol/L Carbon Dioxide 26 (22-29) mmol/L Anion Gap 12 (12-20) BUN 12 (9-16) mg/dL Creatinine 0.75 (0.5-1.4) mg/dL Estim Creat Clear Calc 105.9 Estimated GFR > 60 Random Glucose 121 H (60-115) mg/dL Calcium 8.7 (8.4-10.2) mg/dL Total Bilirubin 0.2 (0.0-1.0) mg/dL AST 37 H (5-31) U/L ALT 24 (0-31) U/L Alkaline Phosphatase 92 (39-117) U/L Total Protein 7.1 (6.5-8.0) g/dL Albumin 3.8 (3.5-5.0) g/dL Urine Color Dark Yellow Urine Appearance Turbid Urine pH 6.0 (5.0-9.0) Ur Specific [place] >= 1.030 H (1.005-1.025) Urine Protein 30 (1+) H (Neg-Trace) mg/dL Urine Glucose (UA) Negative (Negative) mg/dL Urine Ketones Trace (Negative) mg/dL Urine Blood Negative (Negative) Urine Nitrite Negative (Negative) Ur Leukocyte Esterase Negative (Negative) Urine RBC 0-2 (0-2) /HPF Urine WBC 0-5 (0-5) /HPF Ur Squamous Epith Cells 3-5 (0-2) /HPF Urine Bacteria 2+ (None Seen) Hyaline Casts 6-10 (0-2) /LPF Urine Opiates Screen (Not Detect) Ur Buprenorphine Scrn (Not Detect) ng/mL Ur Oxycodone Screen (Not Detect) ng/mL Urine Methadone Screen (Not Detect) ng/mL Urine Fentanyl Screen (Not Detect) Ur Barbiturates Screen (Not Detect) Ur Phencyclidine Scrn (Not Detect) Ur Amphetamines Screen (Not Detect) U Benzodiazepines Scrn (Not Detect) Urine Cocaine Screen (Not Detect) U Marijuana (THC) Screen (Not Detect) Ethyl Alcohol < 10 mg/dL Influenza Type A (PCR) NEGATIVE (Negative) Influenza Type B (PCR) NEGATIVE (Negative) RSV RNA Qual (PCR) NEGATIVE (Negative) SARS-CoV-2 RNA (RT-PCR) NEGATIVE (Negative) 06/19/25 Range/Units 14:52 WBC (4.8-10.8) X10*3/uL RBC (4.20-5.50) X10*6/uL Hgb (12.0-16.0) g/dl Hct (37.0-47.0) % MCV (80.0-98.0) fL MCH (27.0-33.0) pg MCHC (31.0-35.0) g/dl RDW (11.0-16.0) % Plt Count (160-400) X10*3/uL MPV (9.4-12.3) fL Immature Gran % (Auto) (0.0-0.4) % Neut % (Auto) (45-73) % Lymph % (Auto) (20-40) % Cowley % (Auto) (2-11) % Eos % (Auto) (0-4) % Baso % (Auto) (0-2) % Lymph # (Auto) (1.2-4.9) X10*3/uL Cowley # (Auto) (0.1-1.2) X10*3/uL Eos # (Auto) (0.0-0.4) X10*3/uL Baso # (Auto) (0.0-0.2) X10*3/uL Abs Immat Gran (auto) (0.00-0.03) X10*3/uL Absolute Neuts (auto) (2.0-8.3) x10*3/uL Absolute Nucleated RBC (0.0-0.012) X10*3/uL Nucleated RBC % (auto) (0.0-0.2) /100WBC Sodium (135-145) mmol/L Potassium (3.3-5.1) mmol/L Chloride (96-108) mmol/L Carbon Dioxide (22-29) mmol/L Anion Gap (12-20) BUN (9-16) mg/dL Creatinine (0.5-1.4) mg/dL Estim Creat Clear Calc Estimated GFR Random Glucose (60-115) mg/dL Calcium (8.4-10.2) mg/dL Total Bilirubin (0.0-1.0) mg/dL AST (5-31) U/L ALT (0-31) U/L Alkaline Phosphatase (39-117) U/L Total Protein (6.5-8.0) g/dL Albumin (3.5-5.0) g/dL Urine Color Urine Appearance Urine pH (5.0-9.0) Ur Specific [place] (1.005-1.025) Urine Protein (Neg-Trace) mg/dL Urine Glucose (UA) (Negative) mg/dL Urine Ketones (Negative) mg/dL Urine Blood (Negative) Urine Nitrite (Negative) Ur Leukocyte Esterase (Negative) Urine RBC (0-2) /HPF Urine WBC (0-5) /HPF Ur Squamous Epith Cells (0-2) /HPF Urine Bacteria (None Seen) Hyaline Casts (0-2) /LPF Urine Opiates Screen Not Detected (Not Detect) Ur Buprenorphine Scrn Not Detected (Not Detect) ng/mL Ur Oxycodone Screen Not Detected (Not Detect) ng/mL Urine Methadone Screen Not Detected (Not Detect) ng/mL Urine Fentanyl Screen Not Detected (Not Detect) Ur Barbiturates Screen Not Detected (Not Detect) Ur Phencyclidine Scrn Not Detected (Not Detect) Ur Amphetamines Screen Not Detected (Not Detect) U Benzodiazepines Scrn POSITIVE H (Not Detect) Urine Cocaine Screen Not Detected (Not Detect) U Marijuana (THC) Screen Not Detected (Not Detect) Ethyl Alcohol mg/dL Influenza Type A (PCR) (Negative) Influenza Type B (PCR) (Negative) RSV RNA Qual (PCR) (Negative) SARS-CoV-2 RNA (RT-PCR) (Negative) Radiology Impression Discussion of test interpretation with radiology: I have reviewed the radiologist's reading. Radiologist Impression: CT head/brain wo IV con IMPRESSION: No acute intracranial abnormality. Electronically signed by: Rasta Finch MD 06/19/2025 02:08 PM Independent Historian Clinical information obtained from an independent historian. History obtained from or confirmed by: Other (Sister) Prescription Management I considered prescription management with: Other (I prescribed risperidone 2 mg b.i.d.) Chronic Conditions Patient?s care impacted by: Other (Developmental delay) Discharge Plan Discharge Clinical Impression: Agitation, Developmental delay, mild Patient Disposition: Home, Self-Care Additional Instructions: Margie lab work today included a complete blood count and comprehensive metabolic panel with no significant abnormalities. Her COVID-19, influenza and RSV tests were negative. Her urine tests is not consistent with a urine infection. The CT scan of the brain was unremarkable. At this time I think her agitation in his due to her psychiatric illness and not due to an acute medical problem that she needs to be hospitalized for. In order to complete her medical workup in the emergency department she was given Haldol 10 mg IM, Benadryl 10 mg IM and Versed 4 mg IM. She was also given Zyprexa 10 mg orally prior to leaving the emergency department I want to increase her risperidone from 1 mg twice a day as needed to 2 mg twice a day regularly and not as needed for agitation. I sent a prescription for this medication to her pharmacy. Continue giving her her other medications as prescribed. Follow up with her psychiatric prescribing provider for further evaluation and possible medication changes to help with her agitation. Prescriptions: New risperidone 2 mg tablet 2 mg PO BID 30 Days Qty: 60 0RF No Action trazodone 100 mg tablet 100 mg PO BEDTIME risperidone 2 mg tablet 2 mg PO BEDTIME folic acid 1 mg tablet 1 mg PO QAM fluoxetine 40 mg capsule 40 mg PO DAILY multivitamin [One Daily Multivitamin] Tablet 1 tab PO QAM Dulera 100-5 mcg/actuation HFA aerosol inhaler 2 puff inhalation Print Language: Honduran
[2025-06-19] MEDS: Nicotine 21 MG PATCH.TD24 TRANSDERMA (15:53)
--- OUTSIDE RECORDS SUMMARY | 2025-06-19 15:58 | XMS_ITS | Continuity of Care Document ---
Author Name Juni Hill Address [address] [place] [id number] Organization Unknown Address [address] [place] [id number] Medications No known medications Problems No known problems
--- OUTSIDE RECORDS SUMMARY | 2025-06-19 15:58 | XMS_ITS | Data Portability ---
Author Organization [facility], [facility] Address [address] [place] [address] Care Team Providers Care Risk Reduction Counselor Name Role Phone Unavailable OTHER HIM [facility] OTHER Assessment No assessment recorded. Plan of Treatment Reminders Order Date Submit Date Provider Last Modified By Organization Details Last Modified Time Details Appointments None recorded. Lab None recorded. Referral None recorded. Procedures None recorded. Surgeries None recorded. Imaging None recorded. Medication Orders amoxicillin 875 mg-potassiu m clavulanate 125 mg tablet 2024 025 [facility], [address] [place] [address], [id number], 5 17:47:51 Probiotic 10 billion cell capsule 2024 025 [facility], [address] [place] [address], [id number], 5 17:47:51 hydrocortis one 1 % topical cream 2024 025 [facility], [address] [place] [address], [id number], 5 18:47:56 Patient TargetsNo targets recorded. Patient InstructionsNo instructions recorded. Reason for Referral None Reported. Medical Equipment None Reported. Allergies Allergen ID Allergen Name Allergen Category Reaction Reaction Severity Criticality Documentation Date Start Date Code Code System Note Provider Name and Address Organization Details Recorded Time 87056 ibuprofen medicatio n Not available Not available Not available 12/26/2024 5640 RxNorm Not Available [facility] - production 15:51:22 48422 latex environme nt,medica tion Not available Not available Not available 12/26/2024 86601 91 RxNorm Not Available [facility] - production 5 15:51:22 Medications Name Sig Start Date Stop Date Status Note LastModified by Organization Details LastModified Time multivitamin tablet TAKE 1 TABLET BY MOUTH EVERY MORNING active Not Available Not Available No t Available fluoxetine 40 mg capsule TAKE 1 CAPSULE BY MOUTH EVERY MORNING active Not Available Not Available No t Available amoxicillin 500 mg capsule TAKE 1 CAPSULE BY MOUTH EVERY 8 HOURS UNTIL FINISHED active Not Available Not Available No t Available metformin 500 mg tablet TAKE 1 TABLET BY MOUTH TWICE DAILY IN THE MORNING AND IN THE EVENING WITH MEALS active Not Available Not Available N ot Available fluconazole 150 mg tablet TAKE 1 TABLET BY MOUTH DAILY EVERY 3rd DAY FOR 18 DAYS active Not Available Not Available No t Available acetaminophen 500 mg tablet TAKE 1 TABLET BY MOUTH EVERY 8 HOURS NEEDED FOR PAIN FOR UP TO 5 DAYS active Not Available Not Available No t Available acetaminophen ER 650 mg tablet,extend ed release TAKE 1 TABLET BY MOUTH EVERY 8 HOURS NEEDED FOR MODERATE PAIN FOR UP TO 10 DAYS DO NOT BREAK, CRUSH, DISSOLVE OR CHEW active Not Available Not Available No t Available risperidone 2 mg tablet TAKE 1 TABLET BY MOUTH EVERY MORNING active Not Available Not Available No t Available trazodone 100 mg tablet TAKE 1 TABLET BY MOUTH AT BEDTIME NEEDED FOR SLEEP active Not Available Not Available No t Available hydrocortison e 1 % topical cream APPLY A THIN LAYER TO THE AFFECTED AREA(S) BY TOPICAL ROUTE 2 TIMES PER DAY 2024 active Not Available Not Available Not Avai lable folic acid 1 mg tablet TAKE 1 TABLET BY MOUTH EVERY MORNING active Not Available Not Available No t Available ketoconazole 2 % topical cream APPLY TOPICALLY TO THE AFFECTED AREA(S) EVERY DAY active Not Available Not Available No t Available amoxicillin 875 mg-potassium clavulanate 125 mg tablet Take 1 tablet every 12 hours by oral route for 7 days. 2024 active Not Available Not Available Not Avai lable chlorhexidine gluconate 0.12 % mouthwash RINSE WITH 15 ML, SWISH AND SPIT OUT, THREE TIMES DAILY IN THE MORNING, AT NOON, AND AT BEDTIME FOR UP TO 5 DAYS DO NOT SWALLOW active Not Available Not Available No t Available Probiotic 10 billion cell capsule Take 1 capsule every day by oral route for 14 days. 2024 active Not Available Not Available Not Avai lable Vitals Date Recorded Oxygen saturation Body temperature Respiratory rate Heart rate Systolic And Diastolic Provider Name and Address Organization Details Last Updated DateTime 97 % 98.1 [degF] 16 /min 74 /min 128/76 mm[Hg] Not Available [facility] - production 17:34:04 Social History None recorded. Functional Status None recorded. Mental Status None recorded. Family History Nothing Reported. Medical History No medical history recorded. Gynecological HistoryNo gynecological history recorded. Obstetrics History GPAL:G 0 P 0 0 0 0 Past Encounters Encounter ID Performer Location Encounter Start Date Encounter Closed Date Diagnosis/Indication Diagnosis SNOMED-CT Code Diagnosis ICD10 Code Diagnosis IMO Codes Diagnosis Note [id number] RAYO DOVER MD [facility] ED Medical [facility] [address] [place] [address] 12/26/2024 17:33:56 12/26/2024 20:32:46 Prickly heat 54393285 L74.0 855 Evaluation in the field was performed by my pantry steward/stewardess colleague, as noted above, I provided real-time direction and supervisio n for this visit. The evaluation revealed a 54-year-ol d female with a past medical history of anxiety disorder, gastroesop hageal reflux disease (GERD), and obesity who presented with a complaint of rash. The patient reports what she believes to be a heat rash on both forearms. She has experience d similar rashes in the past. She noted that the rash appeared worse yesterday but is less bothersome today; she primarily wanted reassuranc e.The patient also mentioned recent treatment with antibiotic s for a tooth infection and reports ongoing dental pain, with an appointmen t scheduled for the middle of next month. She denies chest pain, shortness of breath, fevers, nausea, vomiting, diarrhea, or other systemic symptoms at this time. Vital Signs:Stab le and afebrilePh ysical Exam:AAO, NADPoor dentition noted, but no active drainage or oral erythemaAb domen: soft, non-tender , non-disten dedExtremi ties: warm, well-perfu sed, no edemaLungs : clear to auscultati on bilaterall ySkin: mild erythema on bilateral forearms, non-infect ed appearance , consistent with heat rashAllerg ies: Reviewed Impression :Likely miliaria (heat rash); currently improving Plan:Reass urance provided; rash appears benign and consistent with heat-relat ed irritation Recommende d keeping the affected area cool, clean, and dryMay apply 1% hydrocorti sone cream once or twice daily for itching if neededAvoi d tight or occlusive clothing in hot environmen tsEncourag ed oral hydration and avoidance of excessive heat exposureAd vised to monitor for signs of secondary infection (increased redness, pain, swelling, pus)Reinfo rced the importance of follow-up with her dentist as scheduled; advised to call sooner if dental pain worsens or systemic symptoms developRed flag symptoms reviewed, including: fever, spreading redness, severe pain, or systemic symptoms Primary care, consider__ _ Dispositio n: We discussed the diagnostic uncertaint y of home visits and the risk associated with this. In this case, the patient and I felt this to be an acceptable and reasonable amount of risk given the benefit of avoiding an ED visit. We discussed the need to seek care urgently/e mergently in the setting of any new or worsening serious symptoms, particular ly fever, spreading redness, severe pain, or systemic symptoms Infection of tooth 07223 8007 K04.7 [id number] Prescripti on for Augmentin 875 mg BID for 10 days sent to the patient s pharmacyP rescriptio n for probiotic also sent; patient advised to take it during antibiotic course to support gut health and to consume yogurt daily if toleratedE ncouraged adequate oral hydrationA dvised to keep the scheduled dental appointmen t and to follow up sooner if symptoms worsenRed flag symptoms discussed, including: facial swelling, fever, worsening dental pain, difficulty swallowing , or systemic signs of infection instructed to seek prompt medical or dental attention if any occur Health Concerns Section Related Observation LastModified by Organization Detai ls LastModified Time None Recorded Concern Status LastModified by Organization Details LastModified Time None Recorded Advance Directives Directive None Recorded Payers Insurance Date Sequence Insurance Name Policy Number Policy Raphael Covered Member ID Raphael Member ID Guarantor Name 01/04/2025 1 [facility] - DOS ON OR AFTER 2022 - DUAL ELIGIBLE - [facility] AND ONE CARE (MEDICARE REPLACEMENT/ADV ANTAGE - HMO) Mary Gallo [id number] Mary Lamourt Notes Date Note Type Note Provider Name and Address Organization Details Recorded Time 12/26/2024 text/html ROS as noted in the HPI HPI: Patient with Developmental Delay per history. Reports itchy rash noted following heat and sun exposure. Has used unknown lotion on it with no improvement. No signs of infection. ...................... ...................... ...................... ...................... ...................... ...................... ......... [facility] Nurse Triage Notes (Preeti Jorge): Reason For Request: rash Chief Complaints: Rash PMH: Anxiety Disorder, Gastroesophageal Reflux Disease (GERD), Obesity, Other PMH Reviewed at 12/26/2024 - 15:51 Allergies Reviewed at 12/26/2024 - 15:51 Comments: HPI reviewed ...................... ...................... ...................... ...................... ...................... ...................... ......... Avionics Installer Note From González Degroot: Dispatched to the call address for the female with a rash. Pt states she has heat rash on both of her forearms. She has had this before, they looked worse yesterday and don't bother her much today but she wanted to make sure they were ok. She also states that she was recently on abx for tooth infection and needs her teeth removed but they are hurting again. She has a dentist appt in the middle of next month. She denies chest pain, diff breathing/SoB, fevers, n/v/d or other complaints at this time. Pt was found sitting on couch, CAOx3, airway open and patent, breathing non labored, able to speak in full sentences, -JVD, -HEENT, skin PWD with good turgor, abd soft non tender/distended, afebrile, +CMSx4, -edema/swelling, lungs CTA, slight red area on bilateral forearms-non infected appearing. Pt was assessed. Pictures of Pts arms and mouth uploaded to portal. [facility] consulted. Scripts called into preferred pharmacy. Red flags discussed. ALL times are approx. ...................... ...................... ...................... ...................... ...................... ...................... ......... [facility] Consulted: Rayo Dover ...................... ...................... ...................... ...................... ...................... ...................... ......... Disposition: Alessio DOVER MD [address], [place], [address], [employer] - [employer] 12/26/2024 18:40:29 OBGyn Episode No OBEpisode recorded.
--- OUTSIDE RECORDS SUMMARY | 2025-06-19 15:58 | XMS_ITS | Encounter Summary ---
Author Organization [facility] Address [address] [place] [address] Encounters * CPT with Juni Hill at [facility] on 2024-12-26 Patient with Developmental Delay per history. Reports itchy rash noted following heat and sun exposure. Has used unknown lotion on it with no improvement. No signs of infection. { reasonForRequest : rash , patientReports : , denies& quot;:[], chiefComplaints : Rash , pmh : Anxiety Disorder, Gastroesophageal Reflux Disease (GERD), Obesity, Other , allergies : Ibuprofen, Latex& quot;, otherAllergies : , painAssessment : , visitOut come : , additionalComments : HPI reviewed } Dispatched to the call address for the [...] has a dentist appt in the middle ofnext month. She denies chest pain, diff breathing/SoB, fevers, n/v/d or other complaints at this time. Pt was found sitting on couch, CAOx3, airway open and patent, breathing non labored, able to speak in full sentences, -JVD, -HEENT, skin PWD with good turgor, abd soft non tender/distended, afebrile,+CMSx4, -edema/swelling, lungs CTA, slight red area on bilateral forearms-non infected appearing. Pt was assessed. Pictures of Pts arms and mouth uploaded to portal. [facility] consulted. Scripts called into preferred pharmacy. Red flags discussed. ALL times are approx. PO_MEDICATION Written by Juni Hill on 2024-12-26
[2025-06-19 16:23] VITALS: BP 125/68; PULSE 98; RESP 20; TEMP 36.7; O2SAT 98
--- OUTSIDE RECORDS SUMMARY | 2025-06-24 19:00 | XMS_ITS | Clinical Summary ---
Author Organization Unknown Care Team Providers Care Juice Scaleman Name Role Phone MARIA DE JESUS VIDEO GAME DEVELOPER, SAL Unavailable Unavailable CARMEN CHRISTINE, RAMAKRISHNA Unavailable Unavailable Payers Payer Name Policy Type Policy Number Effective Date Expira tion Date [facility] [place] [id number] MEDICAID [facility] [id number] MEDICARE - [facility] - [place] [id number] Problems Condition Name Condition Details Condition Category Status Onset Date Resolution Date Last Treatment Date Treating Clinician Comments MAJOR DEPRESSIVE DISORDER, RECURRENT, UNSPECIFIED Active 2018-07 00:00: 00 Allergies, Adverse Reactions, Alerts Allergy Name Allergy Type Status Severity Reaction(s) Onset Date Inactive Date Treating Clinician Comments NKA Propensity to adverse reactions Active 2022-08 10:18:0 2 Medications Ordered Medication Name Filled Medication Name Start Date Stop Date Current Medication? Ordering Clinician Indication Dosage Frequency Signature (SIG) Comments Components fluoxetine 40 mg capsule 09-09 00:00: 00 Yes [id number] 40 capsule EVERY AM 40 capsule EVERY AM (route: oral) Alternate Route: By mouth. Med Classific ation: Central Nervous System Agents folic acid 1 mg tablet 2018-07 00:00: 00 04-26 23:59 :00 No [id number] 1 mg DAILY 1 mg DAILY (route: oral) Alternate Route: By mouth. Med Classific ation: Electroly te Balance-N utritiona l Products hydrocortis one 1 % lotion 2018-07 00:00: 00 03-04 23:59 :00 No [id number] 1 2 TIMES DAILY 1 % 2 TIMES DAILY (route: topical) Alternate Route: Topical. Med Classific ation: Dermatolo gical lorazepam 1 mg tablet 08-07 00:00: 00 Yes [id number] 1 mg DIRECTED 1 mg DIRECTED (route: oral) Alternate Route: By mouth. Med Classific ation: Central Nervous System Agents ProAir HFA 90 mcg/actuati on aerosol inhaler 2018-07 00:00: 00 Yes [id number] 90 puff EVERY 4 HOURS 90 puff EVERY 4 HOURS (route: inhalation ) Med Classific ation: Respirato ry Therapy Agents Risperdal 2 mg tablet 2018-07 00:00: 00 Yes [id number] 2 mg DAILY 2 mg YULIYA Y (route: oral) Alternate Route: By mouth. Med Classific ation: Central Nervous System Agents Risperdal 4 mg tablet 2018-07 00:00: 00 08-20 23:59 :00 No [id number] 4 mg BEDTIME 4 mg BEDTIME (route: oral) Alternate Route: By mouth. Med Classific ation: Central Nervous System Agents senna 8.6 mg tablet 2018-07 00:00: 00 03-04 23:59 :00 No [id number] 8.6 mg BEDTIME 8.6 mg BEDTIME (route: oral) Alternate Route: By mouth. Med Classific ation: Gastroint estinal Therapy Agents trazodone 100 mg tablet 9-06 00:00: 00 Yes [id number] 100 mg BEDTIME 100 mg BEDTIME (route: oral) Med Classific ation: Central Nervous System Agents trazodone 50 mg tablet 2-05 00:00: 00 03-04 23:59 :00 No [id number] 50 mg BEDTIME 50 mg BEDTIME (route: oral) Alternate Route: By mouth. Med Classific ation: Central Nervous System Agents Tylenol 325 mg tablet 2-05 00:00: 00 03-04 23:59 :00 No [id number] 325 mg DIRECTED 325 mg DIRECTED (route: oral) Alternate Route: By mouth. Med Classific ation: Analgesic , Anti-infl ammatory or Antipyret ic Wixela Inhub 100 mcg-50 mcg/dose powder for inhalation 2018-07 00:00: 00 03-04 23:59 :00 No [id number] 100 mcg TWICE A DAY 100 mcg TWICE A DAY (route: inhalation ) Med Classific ation: Respirato ry Therapy Agents metformin 500 mg tablet 2023-07 00:00: 00 Yes [id number] 500 mg EVERY AM 500 mg EVERY AM (route: oral) Med Classific ation: Endocrine Vital Signs Vital Name Observation Time Observation Value Commen ts Temperature 2025-06-18 09:22:00.000 97.8 [degF] Temperature 2025-06-17 10:12:00.000 97.5 [degF] Temperature 2025-06-16 09:36:00.000 98 [degF] Temperature 2025-06-15 08:58:00.000 97.5 [degF] Temperature 2025-06-14 08:57:00.000 97.8 [degF] Temperature 2025-06-13 10:01:00.000 97.5 [degF] Temperature 2025-06-12 09:11:00.000 97.5 [degF] Temperature 2025-06-11 09:27:00.000 97.7 [degF] Temperature 2025-06-10 09:55:00.000 97.2 [degF] Temperature 2025-06-09 10:21:00.000 97.5 [degF] Temperature 2025-06-08 09:12:00.000 97.5 [degF] Temperature 2025-06-07 09:12:00.000 97.5 [degF] Temperature 2025-06-06 10:18:00.000 97.3 [degF] Temperature 2025-06-05 10:09:00.000 97.5 [degF] Temperature 2025-06-04 10:25:00.000 97.5 [degF] Temperature 2025-06-03 10:14:00.000 97.4 [degF] Temperature 2025-06-02 09:57:00.000 97.5 [degF] Temperature 2025-06-01 09:29:00.000 97.5 [degF] Temperature 2025-05-31 09:31:00.000 97.4 [degF] Temperature 2025-05-30 10:13:00.000 97.5 [degF] Temperature 2025-05-29 09:22:00.000 97.5 [degF] Temperature 2025-05-28 10:18:00.000 97.5 [degF] Temperature 2025-05-27 10:02:00.000 97.7 [degF] Temperature 2025-05-26 09:40:00.000 97.5 [degF] Temperature 2025-05-25 09:01:00.000 97.5 [degF] Temperature 2025-05-24 09:16:00.000 97.6 [degF] Temperature 2025-05-23 15:21:00.000 97.4 [degF] Temperature 2025-05-22 09:07:00.000 97.5 [degF] Temperature 2025-05-21 09:25:00.000 97.5 [degF] Temperature 2025-05-20 09:37:00.000 97.7 [degF] Temperature 2025-05-19 09:25:00.000 97.5 [degF] Temperature 2025-05-18 08:48:00.000 97.8 [degF] Temperature 2025-05-17 09:13:00.000 97.8 [degF] Temperature 2025-05-16 09:55:00.000 97.5 [degF] Temperature 2025-05-15 12:24:00.000 97.5 [degF] Temperature 2025-05-14 09:56:00.000 97.3 [degF] Temperature 2025-05-13 09:48:00.000 97.5 [degF] Temperature 2025-05-12 09:15:00.000 97.5 [degF] Temperature 2025-05-11 09:01:00.000 97.5 [degF] Temperature 2025-05-10 09:54:00.000 97.5 [degF] Temperature 2025-05-09 09:48:00.000 98 [degF] Temperature 2025-05-08 09:25:00.000 97.5 [degF] Temperature 2025-05-07 09:14:00.000 97.5 [degF] Temperature 2025-05-06 09:36:00.000 97.8 [degF] Temperature 2025-05-05 09:16:00.000 97.5 [degF] Temperature 2025-05-04 09:04:00.000 97.5 [degF] Temperature 2025-05-03 09:04:00.000 97.5 [degF] Temperature 2025-05-02 09:45:00.000 97.5 [degF] Temperature 2025-05-01 09:00:00.000 97.5 [degF] Temperature 2025-04-30 09:09:00.000 97.5 [degF] Temperature 2025-04-29 09:47:00.000 97.5 [degF] Temperature 2025-04-28 09:04:00.000 97.5 [degF] Temperature 2025-04-27 09:25:00.000 97.5 [degF] Pulse 2025-06-18 09:22:00.000 88 /min Plan of Treatment Planned Activity Planned Date Details Comments Future Scheduled Test SKILLED NU RSE TO EVALUATE PATIENT, IDENTIFY PRIMARY AND CO-MORBID CONDITIONS CODED PER CODING GUIDELINES, AND DEVELOP PATIENT SPECIFIC PLAN OF CARE THAT INCLUDES PATIENT GOAL FOR HOME HEALTH. PLAN OF CARE TO INCLUDE 3 PRN VISIT(S) FOR OASIS DATA COLLECTION/COMPREHENSIVE ASSESSMENT AT TIMEPOINTS PER FEDERAL REGULATIONS. THIS INCLUDES VISITS FOR CRUZITO, RECERT, SCIC, AND/OR DC. [code = SKILLED NURSE TO EVALUATE PATIENT, IDENTIFY PRIMARY AND CO-MORBID CONDITIONS CODED PER CODING GUIDELINES, AND DEVELOP PATIENT SPECIFIC PLAN OF CARE THAT INCLUDES PATIENT GOAL FOR HOME HEALTH. PLAN OF CARE TO INCLUDE 3 PRN VISIT(S) FOR OASIS DATA COLLECTION/COMPREHENSIVE ASSESSMENT AT TIMEPOINTS PER FEDERAL REGULATIONS. THIS INCLUDES VISITS FOR CRUZITO, RECERT, SCIC, AND/OR DC.] Future Scheduled Test SKILLED NU RSE TO PRE-POUR MEDICATION PER MEDICATION LIST TILL NEXT RESIDENTIAL VISIT [code = SKILLED NURSE TO PRE-POUR MEDICATION PER MEDICATION LIST TILL NEXT RESIDENTIAL VISIT] Future Scheduled Test SKILLED NU RSE TO O/A OF PATIENTS MENTAL/BEHAVIORAL STATUS, ASSESS VITAL SIGNS DAILY [code = SKILLED NURSE TO O/A OF PATIENTS MENTAL/BEHAVIORAL STATUS, ASSESS VITAL SIGNS DAILY] Future Scheduled Test SKILLED NU RSE FOR O/A OF NEUROCOGNITIVE AND BEHAVIORAL STATUS [code = SKILLED NURSE FOR O/A OF NEUROCOGNITIVE AND BEHAVIORAL STATUS] Future Scheduled Test MEDICATION S WILL BE HELD AND STORED IN LOCKBOX [code = MEDICATIONS WILL BE HELD AND STORED IN LOCKBOX] Future Scheduled Test SKILLED NU RSE FOR O/A OF GENERAL HEALTH STATUS OF PAIN, CARDIAC, RESPIRATORY, GASTROINTESTINAL, GENITOURINARY, SKIN, NEUROLOGIC, ENDOCRINE SYSTEMS TO IDENTIFY CHANGES ASSOCIATED WITH EXACERBATION FOR EARLY INTERVENTION OF COMPLICATIONS WEEKLY, [code = SKILLED NURSE FOR O/A OF GENERAL HEALTH STATUS OF PAIN, CARDIAC, RESPIRATORY, GASTROINTESTINAL, GENITOURINARY, SKIN, NEUROLOGIC, ENDOCRINE SYSTEMS TO IDENTIFY CHANGES ASSOCIATED WITH EXACERBATION FOR EARLY INTERVENTION OF COMPLICATIONS WEEKLY,] Future Scheduled Test SKILLED NU RSE TO ADMINISTER MEDICATIONS DAILY AND PRE-POUR MEDICATIONS TILL NEXT RESIDENTIAL VISIT PER MEDICATION LIST. [code = SKILLED NURSE TO ADMINISTER MEDICATIONS DAILY AND PRE-POUR MEDICATIONS TILL NEXT RESIDENTIAL VISIT PER MEDICATION LIST.] Future Scheduled Test SKILLED NU RSE FOR O/A AND SKILLED TEACHING RELATED TO MANAGEMENT OF DEPRESSIVE SYMPTOMS AND/OR DEPRESSION. SN TO REPORT SIGNIFICANT CHANGE IN DEPRESSIVE SYMPTOMS TO CLINICAL PROVIDER FOR EARLY INTERVENTION. [code = SKILLED NURSE FOR O/A AND SKILLED TEACHING RELATED TO MANAGEMENT OF DEPRESSIVE SYMPTOMS AND/OR DEPRESSION. SN TO REPORT SIGNIFICANT CHANGE IN DEPRESSIVE SYMPTOMS TO CLINICAL PROVIDER FOR EARLY INTERVENTION.] Future Scheduled Test SKILLED NU RSE TO PERFORM HOME SAFETY AND FALL ASSESSMENT AND PROVIDE INSTRUCTION TO IMPLEMENT HOME SAFETY AND FALL PREVENTION STRATEGIES. [code = SKILLED NURSE TO PERFORM HOME SAFETY AND FALL ASSESSMENT AND PROVIDE INSTRUCTION TO IMPLEMENT HOME SAFETY AND FALL PREVENTION STRATEGIES.] Future Scheduled Test PATIENT RAMIREZ S A RISK OF HOSPITALIZATION AND ED USE. SKILLED NURSE TO ESTABLISH SUPPORT MEASURES TO MINIMIZE RISK OF HOSPITALIZATION AND ED USE, AND INSTRUCT PATIENT/CAREGIVER ON METHODS TO REDUCE AVOIDABLE HOSPITALIZATION AND ED USE. [code = PATIENT HAS A RISK OF HOSPITALIZATION AND ED USE. SKILLED NURSE TO ESTABLISH SUPPORT MEASURES TO MINIMIZE RISK OF HOSPITALIZATION AND ED USE, AND INSTRUCT PATIENT/CAREGIVER ON METHODS TO REDUCE AVOIDABLE HOSPITALIZATION AND ED USE.] Future Scheduled Test SKILLED NU RSE TO REVIEW PATIENT MEDICATIONS. INSTRUCT PATIENT/CAREGIVER ON MONITORING OF EFFECTIVENESS, ADVERSE DRUG REACTIONS, SIDE EFFECTS OF ALL MEDICATIONS (PRESCRIPTION/-OTC), AND HOW AND WHEN TO REPORT PROBLEMS. [code = SKILLED NURSE TO REVIEW PATIENT MEDICATIONS. INSTRUCT PATIENT/CAREGIVER ON MONITORING OF EFFECTIVENESS, ADVERSE DRUG REACTIONS, SIDE EFFECTS OF ALL MEDICATIONS (PRESCRIPTION/-OTC), AND HOW AND WHEN TO REPORT PROBLEMS.] Future Scheduled Test SKILLED NU RSE FOR O/A OF CLIENT'S SOCIAL ISOLATION AND PROVIDE ASSISTANCE TO CLIENT IN DEVELOPMENT OF PLANNED ACTIVITIES [code = SKILLED NURSE FOR O/A OF CLIENT'S SOCIAL ISOLATION AND PROVIDE ASSISTANCE TO CLIENT IN DEVELOPMENT OF PLANNED ACTIVITIES] Future Scheduled Test SKILLED NU RSE TO ASSESS PATIENT S PSYCHOSOCIAL STATUS TO IDENTIFY POTENTIAL ISSUES THAT MAY COMPLICATE THE PROVISION OF THE PLAN OF CARE INCLUDING THE PATIENT S ABILITY TO ACCESS COMMUNITY RESOURCES AND PSYCHOSOCIAL SUPPORT SERVICES. [code = SKILLED NURSE TO ASSESS PATIENT S PSYCHOSOCIAL STATUS TO IDENTIFY POTENTIAL ISSUES THAT MAY COMPLICATE THE PROVISION OF THE PLAN OF CARE INCLUDING THE PATIENT S ABILITY TO ACCESS COMMUNITY RESOURCES AND PSYCHOSOCIAL SUPPORT SERVICES.] Future Scheduled Test SKILLED NU RSE WILL MAINTAIN SITUATIONAL AWARENESS FOR SAFETY AND WILL NOTIFY CLINICAL BOXING TRAINER AND PHYSICIAN/PROVIDER WITH ANY CHANGE IN CONDITION. [code = SKILLED NURSE WILL MAINTAIN SITUATIONAL AWARENESS FOR SAFETY AND WILL NOTIFY CLINICAL BOXING TRAINER AND PHYSICIAN/PROVIDER WITH ANY CHANGE IN CONDITION.] Future Scheduled Test SKILLED NU RSE TO PROVIDE INSTRUCTION TO PATIENT/CAREGIVER RELATED TO DISCHARGE PLANNING. [code = SKILLED NURSE TO PROVIDE INSTRUCTION TO PATIENT/CAREGIVER RELATED TO DISCHARGE PLANNING.] Future Scheduled Test CLINICAL S UMMARY (SOC/RECERT, 10 DAY, 60 DAY): THE PATIENT IS RECEIVING HOMECARE DUE TO NEW ONSET/EXACERBATION OF: YES RECENT HOSPITALIZATION/INPATIENT ADMISSION RELATED TO: NO NEW OR CHANGED MEDICATIONS PERTINENT TO THE PLAN OF CARE: YES PATIENT LIVING SITUATION/CAREGIVER STATUS: WITH FAMILY SUMMARIZE SKILLED NEED: MEDICATION MANAGEMENT, VITAL SIGN ASSESSMENT, MENTAL STATUS ASSESSMENT AND DIAGNOSIS MANAGEMENT (REMOVE THE FOLLOWING STATEMENT IF NOT APPLICABLE) MEDICATIONS ADMINISTERED AND/OR PREPOURED PER MEDICATION PROFILE [code = CLINICAL SUMMARY (SOC/RECERT, 10 DAY, 60 DAY): THE PATIENT IS RECEIVING HOMECARE DUE TO NEW ONSET/EXACERBATION OF: YES RECENT HOSPITALIZATION/INPATIENT ADMISSION RELATED TO: NO NEW OR CHANGED MEDICATIONS PERTINENT TO THE PLAN OF CARE: YES PATIENT LIVING SITUATION/CAREGIVER STATUS: WITH FAMILY SUMMARIZE SKILLED NEED: MEDICATION MANAGEMENT, VITAL SIGN ASSESSMENT, MENTAL STATUS ASSESSMENT AND DIAGNOSIS MANAGEMENT (REMOVE THE FOLLOWING STATEMENT IF NOT APPLICABLE) MEDICATIONS ADMINISTERED AND/OR PREPOURED PER MEDICATION PROFILE] Goal 2022-11-04 Patient Goal - TAKING MY MED S Goal 2023-01-03 Patient Goal - TAKING MY MED S Goal 2023-03-04 Patient Goal - TAKING MY MED S Goal 2023-05-03 Patient Goal - TAKING MY MED S Goal 2023-07-03 Patient Goal - TAKING MY MED S Goal 2023-08-31 Patient Goal - TAKING MY MED S Goal 2023-10-30 Patient Goal - TAKING MY MED S Goal 2023-12-29 Patient Goal - TAKING MY MED S Goal 2024-02-27 Patient Goal - TAKING MY MED S Goal 2024-04-27 Patient Goal - TAKING MY MED S Goal 2024-06-27 Patient Goal - TAKING MY MED S Goal 2024-08-26 Patient Goal - TAKING MY MED S Goal 2024-10-24 Patient Goal - TAKING MY MED S Goal 2024-12-23 Patient Goal - TAKING MY MED S Goal 2025-02-21 Patient Goal - TAKING MY MED S Goal 2025-04-22 Patient Goal - TAKING MY MED S Goal Patient Goal - TAKING MY MED S Goal Provider Goal - A PLAN OF CARE WILL BE ESTABLISHED THAT MEETS PATIENT'S RESIDENTIAL NEEDS AND INCLUDES PATIENT GOAL FOR HOME HEALTH. Goal Provider Goal - PATIENT WILL COMPLY WITH MEDICATION WHEN SKILLED NURSE PRE-POURS MEDICATION THROUGHOUT CERTIFICATION PERIOD. Goal Provider Goal - ALTERED MENTAL/BEHAVIORAL STATUS WILL BE IDENTIFIED PROMPTLY AND INTERVENTION INITIATED QUICKLY TO MINIMIZE ASSOCIATED RISKS THROUGHOUT CERTIFICATION PERIOD. Goal Provider Goal - PATIENT WILL BE ABLE TO PERFORM DAILY FUNCTIONS AND MAINTAIN OPTIMAL BEHAVIORAL/NEUROCOGNITIVE STATUS THROUGHOUT CERTIFICATION PERIOD. Goal Provider Goal - MEDICATION WILL BE STORED IN LOCKBOX FOR SAFETY. Goal Provider Goal - CHANGE IN GENERAL HEALTH STATUS WILL BE IDENTIFIED AND REPORTED TO PHYSICIAN FOR PROMPT INTERVENTION TO MINIMIZE ASSOCIATED RISKS THROUGHOUT CERTIFICATION PERIOD. Goal Provider Goal - PATIENT WILL COMPLY WITH MEDICATION WHEN SKILLED NURSE ADMINISTERS AND PRE-POURS MEDICATION THROUGHOUT CERTIFICATION PERIOD. Goal Provider Goal - PATIENT WILL REMAIN SAFE WITHOUT DECOMPENSATION IN DEPRESSIVE CONDITION, WHILE MAINTAINING OPTIMAL LEVEL OF MENTAL HEALTH AND WELL BEING THROUGHOUT CERTIFICATION PERIOD. Goal Provider Goal - PATIENT/CAREGIVER WILL VERBALIZE/DEMONSTRATE EFFECTIVE HOME SAFETY AND FALL PREVENTION STRATEGIES THROUGHOUT CERTIFICATION PERIOD. Goal Provider Goal - PATIENT WILL HAVE SUPPORT MEASURES ESTABLISHED TO PREVENT HOSPITALIZATION AND ED USE AND PATIENT/CAREGIVER WILL VERBALIZE/DEMONSTRATE METHODS TO REDUCE AVOIDABLE HOSPITALIZATION AND ED USE BY END OF EPISODE. Goal Provider Goal - PATIENT/CAREGIVER WILL VERBALIZE UNDERSTANDING OF EDUCATION PROVIDED ON MEDICATIONS BY THE END OF THE CERTIFICATION PERIOD. Goal Provider Goal - PATIENT WILL DEMONSTRATE AN INCREASED INTEREST IN SOCIALIZATION AND ACTIVITIES BY THE END OF THE CERTIFICATION PERIOD. Goal Provider Goal - PSYCHOSOCIAL NEEDS WILL BE IDENTIFIED AND PLAN IMPLEMENTED TO MINIMIZE RISK THROUGHOUT CERTIFICATION PERIOD. Goal Provider Goal - PATIENT WILL REMAIN SAFE IN THE COMMUNITY AND WILL BE FREE OF DANGER TO SELF AND OTHERS THROUGHOUT THE CERTIFICATION PERIOD. Goal Provider Goal - PATIENT/CAREGIVER WILL VERBALIZE UNDERSTANDING OF DISCHARGE PLANNING INSTRUCTIONS BY DATE OF DISCHARGE. Goal Provider Goal - PATIENT WILL REMAIN SAFE, FREE FROM HOSPITALIZATION, AND ADHERE TO THE SKILLED NURSE S PLAN OF CARE THROUGHOUT THE CERTIFICATION PERIOD. Encounters Start Date/Time End Date/Time Encounter Type Admission Type Attending Clinicians Care Facility Care Department Encounter ID Discharge Date Discharge Status Discharge Condition Discharge Reason Percent Goals Met 2025-04-27 00:00:00 2025-06-25 00:00:00 Outpatient RECERTIFIC RAMAKRISHNA GALEANA [facility] [id number] 54.84
--- OUTSIDE RECORDS SUMMARY | 2025-06-24 19:00 | XMS_ITS | Clinical Summary ---
Author Organization Unknown Care Team Providers Care Scouring Pads Supervisor Name Role Phone MARIA DE JESUS WET ROLLER, SAL Unavailable Unavailable CARMEN CHRISTINE, RAMAKRISHNA Unavailable Unavailable Payers Payer Name Policy Type Policy Number Effective Date Expira tion Date [facility] [place] [id number] MEDICAID [facility] [id number] MEDICARE - [facility] [id number] Problems Condition Name Condition Details Condition Category [...] 40 mg capsule 09-09 00:00: 00 Yes [id number] 40 capsule EVERY AM 40 capsule EVERY AM (route: oral) Alternate Route: By mouth. Med Classific ation: Central Nervous System Agents folic acid 1 mg tablet 2018-07 00:00: 00 04-26 23:59 :00 No [id number] 1 mg DAILY 1 mg DAILY (route: oral) Alternate Route: By mouth. Med Classific ation: Electroly te Balance-N utritiona l Products hydrocortis one 1 % lotion 2018-07 00:00: 00 03-04 23:59 :00 No [id number] 1 2 TIMES DAILY 1 % 2 TIMES DAILY (route: topical) Alternate Route: Topical. Med Classific ation: Dermatolo gical lorazepam 1 mg tablet 08-07 00:00: 00 Yes [id number] 1 mg DIRECTED 1 mg DIRECTED (route: oral) Alternate Route: By mouth. Med Classific ation: Central Nervous System Agents ProAir HFA 90 mcg/actuati on aerosol inhaler 2018-07 00:00: 00 Yes [id number] 90 puff EVERY 4 HOURS 90 puff EVERY 4 HOURS (route: inhalation ) Med Classific ation: Respirato ry Therapy Agents Risperdal 2 mg tablet 2018-07 00:00: 00 Yes [id number] 2 mg DAILY 2 mg YULIYA Y (route: oral) Alternate Route: By mouth. Med Classific ation: Central Nervous System Agents Risperdal 4 mg tablet 2018-07 00:00: 00 08-20 23:59 :00 No [id number] 4 mg BEDTIME 4 mg BEDTIME (route: oral) Alternate Route: By mouth. Med Classific ation: Central Nervous System Agents senna 8.6 mg tablet 2018-07 00:00: 00 03-04 23:59 :00 No [id number] 8.6 mg BEDTIME 8.6 mg BEDTIME (route: oral) Alternate Route: By mouth. Med Classific ation: Gastroint estinal Therapy Agents trazodone 100 mg tablet 9-06 00:00: 00 Yes [id number] 100 mg BEDTIME 100 mg BEDTIME (route: oral) Med Classific ation: Central Nervous System Agents trazodone 50 mg tablet 2-05 00:00: 00 03-04 23:59 :00 No [id number] 50 mg BEDTIME 50 mg BEDTIME (route: oral) Alternate Route: By mouth. Med Classific ation: Central Nervous System Agents Tylenol 325 mg tablet 2-05 00:00: 00 03-04 23:59 :00 No [id number] 325 mg DIRECTED 325 mg DIRECTED (route: oral) Alternate Route: By mouth. Med Classific ation: Analgesic , Anti-infl ammatory or Antipyret ic Wixela Inhub 100 mcg-50 mcg/dose powder for inhalation 2018-07 00:00: 00 03-04 23:59 :00 No [id number] 100 mcg TWICE A DAY 100 mcg TWICE A DAY (route: inhalation ) Med Classific ation: Respirato ry Therapy Agents metformin 500 mg tablet 2023-07 00:00: 00 Yes [id number] 500 mg EVERY AM 500 mg EVERY [...] PRE-POUR MEDICATION PER MEDICATION LIST TILL NEXT CUSTODIAL VISIT [code = SKILLED NURSE TO PRE-POUR MEDICATION PER MEDICATION LIST TILL NEXT CUSTODIAL VISIT] Future Scheduled Test SKILLED NU RSE [...] MEDICATIONS DAILY AND PRE-POUR MEDICATIONS TILL NEXT CUSTODIAL VISIT PER MEDICATION LIST. [code = SKILLED NURSE TO ADMINISTER MEDICATIONS DAILY AND PRE-POUR MEDICATIONS TILL NEXT CUSTODIAL VISIT PER MEDICATION LIST.] Future Scheduled Test [...] AWARENESS FOR SAFETY AND WILL NOTIFY CLINICAL GOLF CART ASSEMBLER AND PHYSICIAN/PROVIDER WITH ANY CHANGE IN CONDITION. [code = SKILLED NURSE WILL MAINTAIN SITUATIONAL AWARENESS FOR SAFETY AND WILL NOTIFY CLINICAL GOLF CART ASSEMBLER AND PHYSICIAN/PROVIDER WITH ANY CHANGE IN CONDITION.] [...] CARE WILL BE ESTABLISHED THAT MEETS PATIENT'S CUSTODIAL NEEDS AND INCLUDES PATIENT GOAL FOR HOME [...] 00:00:00 2025-06-25 00:00:00 Outpatient RECERTIFIC RAMAKRISHNA GALEANA [facility] [id number] 54.84
== END 2025-06-19 16:24 | disposition home or self-care (01) ==
PROVIDERS: Emergency Provider Emergency Medicine Emergency Medical Services
DX: R45.1 Restlessness and agitation (principal); R62.50 Unspecified lack of expected normal physiological development in childhood; F41.8 Other specified anxiety disorders; Z03.818 Encounter for observation for suspected exposure to other biological agents ruled out; J45.909 Unspecified asthma, uncomplicated; E66.9 Obesity, unspecified; Z68.43 Body mass index [BMI] 50.0-59.9, adult; Z79.899 Other long term (current) drug therapy
CPT/HCPCS: 36415; 70450; 80053; 80061; 80307; 81001; 82607; 82652; 82672; 82746; 83036; 84144; 84443; 84445; 85025; 86592; 86704; 86706; 86709; 86780; 86803; 87340; 87389; 87637; 96372; 99283; 99285; J1200; J1630; J2250

== ENCOUNTER → 2025-06-19 13:21 | Outpatient (BNV) | payer MEDICARE, SELFPAY | PROVIDERS: Emergency Provider Emergency Medicine Emergency Medical Services; Visit Provider Radiology Diagnostic Radiology | DX: R41.82 Altered mental status, unspecified (principal) | CPT/HCPCS: 70450 ==